=== PATIENT | male | born 1955 | race Caucasian/White ===

== ENCOUNTER 2020-09-27 09:29 | Outpatient (REF) | payer MEDICARE, OTHER, SELFPAY ==
--- NOTE | ~2020-09-27 | XR_ITS ---
EXAMINATION: XR CHEST 2 VIEWS CLINICAL INFORMATION: Shortness of breath on exertion. COMPARISON: None. TECHNIQUE: Frontal and lateral views of the chest were obtained. FINDINGS: The heart, great vessels, pulmonary vasculature and mediastinum are normal. The lungs show no focal infiltrate, effusion or pneumothorax. There is no acute osseous abnormality. There are costochondral calcifications. There is multi-level thoracolumbar spondylosis, with an appearance suggesting possible DISH (diffuse idiopathic skeletal hyperostosis). XR/XR chest 2V IMPRESSION: No active cardiopulmonary disease.
[2020-09-27 10:33] LABS: MANUAL DIFF FLAG NO
[2020-09-27 10:46] LABS: Basophils Percent Auto 0.6 % (0-2); Eosinophils Absolute Auto 0.1 X10*3/uL (0.0-0.4); Eosinophils Percent Auto 1.9 % (0-4); Hematocrit 44.6 % (42-52); Hemoglobin 15.2 g/dl (14.0-18.0); Imm Gran Abs Auto 0.06 X10*3/uL (0.00-0.03); Imm Gran Pct Auto 1.2 % (0.0-0.4); Lymphocytes Absolute Auto 1.1 X10*3/uL (1.2-4.9); Lymphocytes Percent Auto 21.8 % (20-40); Mean Corpuscular HGB Conc 34.1 g/dl (31.0-36.0); Mean Corpuscular Hemoglobin 30.6 pg (27.0-33.0); Mean Corpuscular Volume 89.7 fL (80-98); Mean Platelet Volume 10.3 fL (9.4-12.4); Monocytes Absolute Auto 0.5 X10*3/uL (0.1-1.2); Monocytes Percent Auto 8.9 % (2-11); Neutrophils Absolute Auto 3.4 X10*3/uL (2.0-8.3); Neutrophils Percent Auto 65.6 % (45-73); Platelet Count 189 X10*3/uL (160-400); Red Blood Count 4.97 X10*6/uL (4.60-5.80); Red Cell Distribution Width 12.5 % (11.0-16.0); White Blood Count 5.2 X10*3/uL (4.8-10.8)
[2020-09-27 11:10] LABS: Alanine Aminotransferase 28 U/L (0-40); Albumin Level 4.2 g/dL (3.5-5.0); Alkaline Phosphatase 98 U/L (39-117); Anion Gap 13 (12-20); Aspartate Amino Transferase 23 U/L (5-37); Bilirubin Total 0.4 mg/dL (0.0-1.0); Blood Urea Nitrogen 16 mg/dL (9-16); Calcium 9.4 mg/dL (8.4-10.2); Carbon Dioxide 23 mmol/L (22-29); Chloride 105 mmol/L (96-108); Cholesterol 179 mg/dL; Estimated Glomerular Filt Rate > 60; Glucose Fasting 103 mg/dL (60-99); HDL Cholesterol 48 mg/dL; LDL Cholesterol Calculated 98 mg/dl; Potassium 4.4 mmol/L (3.3-5.1); Sodium 137 mmol/L (135-145); Triglycerides 168 mg/dL
[2020-09-27 11:35] LABS: Thyroid Stimulating Hormone 1.76 uIU/mL (0.32-4.0)
== END 2020-09-27 09:30 | disposition home or self-care (01) ==
LOC: HO.LAB 09:29
PROVIDERS: PCP Internal Medicine; Visit Provider Internal Medicine
DX: R06.02 Shortness of breath (principal); G47.33 Obstructive sleep apnea (adult) (pediatric); E78.00 Pure hypercholesterolemia, unspecified
CPT/HCPCS: 36415; 71046; 80053; 80061; 84443; 85025

== ENCOUNTER → 2020-10-08 14:34 | Outpatient (BNVA) | payer BC, MEDICARE, SELFPAY | PROVIDERS: PCP Internal Medicine; Visit Provider Internal Medicine | DX: G47.33 Obstructive sleep apnea (adult) (pediatric) (principal); E66.9 Obesity, unspecified; R06.00 Dyspnea, unspecified; Z99.89 Dependence on other enabling machines and devices | CPT/HCPCS: 99202 ==

== ENCOUNTER 2020-10-19 08:51 | Outpatient (REF) | payer MEDICARE, OTHER, SELFPAY ==
--- NOTE | 2020-10-19 16:39 | PFT_ITS ---
INDICATION: Dyspnea. SPIROMETRY: FEV1 to FVC of 70% predicted with an FEV1 of 2.69 L, which is 81% predicted, and FVC of 2.85 L, which is 86% predicted. No significant response to bronchodilators noted. Maximum voluntary ventilation 82% predicted. LUNG VOLUMES: Total lung capacity 92% predicted with residual volume 103% predicted. Diffusion capacity, DLCO 83% predicted. COMPARISONS: None. INTERPRETATION: There is an obstructive ventilatory defect consistent with mild COPD. The patient does not have any significant response to bronchodilators and has a normal maximum voluntary ventilation. Lung volumes are within normal limits and diffusion capacity as well. Clinical correlation warranted. MD AMARILYS Chamorro/DARRYL / [phone]
== END 2020-10-19 08:52 | disposition home or self-care (01) ==
LOC: HO.RESP 08:51
PROVIDERS: PCP Internal Medicine; Visit Provider Internal Medicine
DX: R06.00 Dyspnea, unspecified (principal); E66.9 Obesity, unspecified
CPT/HCPCS: 94060; 94727; 94729

== ENCOUNTER → 2020-10-24 14:14 | Outpatient (BNVA) | payer MEDICARE, OTHER, SELFPAY | PROVIDERS: PCP Internal Medicine; Visit Provider Internal Medicine Cardiovascular Disease | DX: R06.00 Dyspnea, unspecified (principal) | CPT/HCPCS: 93005; 99202 ==

== ENCOUNTER → 2020-10-29 11:05 | Outpatient (REF) | payer MEDICARE, OTHER, SELFPAY ==
--- NOTE | 2020-10-29 11:08 | CA_ITS ---
Acquisition Time: 2020-10-29 11:30:09 Total Exercise Time: 00:09:10 Test Indications: CP, SOB Medications: SEE CHART Protocol: EHSAN Max HR: 141 BPM 90% of Pred: 155 BPM Max BP: 182/074 mmHG Max Work Load: 10.3 METS Exercise stress test with exercise 9 min 10 sec of Ehsan protocol, with mild sob, no chest discomfort, with isolated PVC, with normotensive response to exercise, without EKG changes meeting criteria for ischemia. Echo images obtained by tech at rest and immediately post peak exercise. Definity contrast used. Test reviewed with Dr Jang. Referred By: Toan Wright Overread By: FREYA LERMA
== END ==
LOC: HO.CARD 11:05
PROVIDERS: Visit Provider Internal Medicine Cardiovascular Disease
DX: R06.00 Dyspnea, unspecified (principal)
CPT/HCPCS: 93350; Q9957

== ENCOUNTER → 2020-11-21 10:34 | Outpatient (BNVA) | payer BC, MEDICARE, SELFPAY | PROVIDERS: PCP Internal Medicine; Visit Provider Internal Medicine | DX: G47.33 Obstructive sleep apnea (adult) (pediatric) (principal); E66.9 Obesity, unspecified; J44.9 Chronic obstructive pulmonary disease, unspecified; Z99.89 Dependence on other enabling machines and devices | CPT/HCPCS: 99212 ==

== ENCOUNTER → 2020-12-06 13:40 | Outpatient (BNVA) | payer MEDICARE, OTHER, SELFPAY | PROVIDERS: PCP Internal Medicine; Visit Provider Internal Medicine Cardiovascular Disease | DX: R06.00 Dyspnea, unspecified (principal) | CPT/HCPCS: 99212 ==

== ENCOUNTER → 2021-03-13 08:57 | Outpatient (BNVA) | payer MEDICARE, OTHER, SELFPAY | PROVIDERS: PCP Internal Medicine; Referring Provider Internal Medicine; Visit Provider Internal Medicine Cardiovascular Disease | DX: R06.00 Dyspnea, unspecified (principal); J44.9 Chronic obstructive pulmonary disease, unspecified; E78.5 Hyperlipidemia, unspecified; E66.9 Obesity, unspecified; G47.33 Obstructive sleep apnea (adult) (pediatric); F17.200 Nicotine dependence, unspecified, uncomplicated; Z68.35 Body mass index [BMI] 35.0-35.9, adult; Z99.89 Dependence on other enabling machines and devices; Z79.899 Other long term (current) drug therapy | CPT/HCPCS: 99212 ==

== ENCOUNTER → 2021-03-19 09:22 | Outpatient (BNVA) | payer MEDICARE, OTHER, SELFPAY | PROVIDERS: PCP Internal Medicine; Visit Provider Internal Medicine | DX: G47.33 Obstructive sleep apnea (adult) (pediatric) (principal); J44.9 Chronic obstructive pulmonary disease, unspecified; R06.00 Dyspnea, unspecified; E66.9 Obesity, unspecified; Z99.89 Dependence on other enabling machines and devices | CPT/HCPCS: 99212 ==

== ENCOUNTER → 2021-09-11 09:13 | Outpatient (BNVA) | payer MEDICARE, SELFPAY | PROVIDERS: PCP Internal Medicine; Referring Provider Internal Medicine; Visit Provider Internal Medicine Cardiovascular Disease | DX: R06.00 Dyspnea, unspecified (principal) | CPT/HCPCS: 93005; 99212 ==

== ENCOUNTER → 2021-09-16 09:18 | Outpatient (BNVA) | payer MEDICARE, SELFPAY | PROVIDERS: PCP Internal Medicine; Visit Provider Internal Medicine | DX: G47.33 Obstructive sleep apnea (adult) (pediatric) (principal); J44.9 Chronic obstructive pulmonary disease, unspecified; R06.00 Dyspnea, unspecified; E66.9 Obesity, unspecified; Z99.89 Dependence on other enabling machines and devices | CPT/HCPCS: 99212 ==

== ENCOUNTER → 2022-02-05 13:38 | Outpatient (BNVA) | payer MEDICARE, SELFPAY | PROVIDERS: PCP Internal Medicine; Referring Provider Internal Medicine; Visit Provider Nurse Practitioner Family | DX: R06.00 Dyspnea, unspecified (principal); G47.33 Obstructive sleep apnea (adult) (pediatric); E66.9 Obesity, unspecified; J44.9 Chronic obstructive pulmonary disease, unspecified; Z99.89 Dependence on other enabling machines and devices | CPT/HCPCS: 99212 ==

== ENCOUNTER → 2022-03-18 10:28 | Outpatient (BNVA) | payer MEDICARE, SELFPAY | PROVIDERS: Visit Provider Internal Medicine | DX: G47.33 Obstructive sleep apnea (adult) (pediatric) (principal); G47.00 Insomnia, unspecified; J44.9 Chronic obstructive pulmonary disease, unspecified; Z99.89 Dependence on other enabling machines and devices | CPT/HCPCS: 99212 ==

== ENCOUNTER → 2022-09-22 11:19 | Outpatient (BNVA) | payer MEDICARE, SELFPAY | PROVIDERS: Visit Provider Internal Medicine | DX: G47.33 Obstructive sleep apnea (adult) (pediatric) (principal); J44.9 Chronic obstructive pulmonary disease, unspecified; G47.00 Insomnia, unspecified; Z99.89 Dependence on other enabling machines and devices | CPT/HCPCS: 99212 ==

== ENCOUNTER 2023-02-18 15:04 | Outpatient (AMB) | payer MEDICARE, SELFPAY ==
--- NOTE | 2023-02-18 15:49 | A.OFFVIS_ITS ---
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 He said during the wintertime he had exertional shortness of breath as well as some chest discomfort. He was smoking cigars at that time. He was referred to pulmonology and was seen by Dr. Corbett. He is saying that he continues to have shortness of breath. He also gets shortness of breath if he bends down. He has gained weight and he has abdominal obesity. He has no chest discomfort. Physically he is active at work but does not exercise regularly. He was referred for stress echocardiogram. This was essentially normal. He was advised to lose some weight and to see if his breathing improves. He returns for follow-up today. He has lost 12 lb since his previous visit. He is saying by his home scale he has lost 20 lb. He is saying that he is feeling much better and able to do more and his shortness of breath is improving. 02/18/2023: He returns for follow-up. Noe greco is saying that he exercise and lost weight and felt better from dyspnea point of view. He is saying he has stopped losing weight despite trying and unable to lose further weight. His dietary habits are that he does not eat a breakfast, he eats saw small lunch and then he has a big dinner. I explained to him that he needs to reverse his eating pattern and eat smaller meals at dinnertime. Overall his dyspnea has improved significantly with weight loss and he is denying any other concerns right now. [facility] Medical History COPD (chronic obstructive pulmonary disease) Dyspnea on exertion Insomnia Obesity (BMI 30-39.9) ANTHONY on CPAP Surgical History H/O knee surgery Family History Brother A-fib Brother A-fib Social History Alcohol intake: current Alcohol intake frequency: a few times a week Patient Tobacco Use Status: Current someday Tobacco user Tobacco use type: Cigar Years Smoked: 30+/- (Cigarettes) Review of Systems Const Denies chills, Denies fatigue, Denies fever(s), Denies frequent falls, Denies weakness, Denies weight gain and Denies weight loss ENT Denies dizziness Card Denies chest pain, Denies leg edema, Denies lightheadedness, Denies palpitations, Denies dyspnea, Denies dyspnea on exertion, Denies orthopnea and Denies other (loss of consciousness) Resp Denies cough, Denies dyspnea and Denies dyspnea on exertion GI Denies hematochezia and Denies change in stool character Musc Denies abnormal gait, Denies muscle weakness, Denies numbness, Denies radiating pain into limb and Denies tingling Neuro Denies abnormal gait, Denies dizziness, Denies frequent falls, Denies numbness, Denies tingling and Denies weakness Endo Denies fatigue and Denies palpitations Physical Exam Vital Signs: Last Vital Signs Pulse 72 02/18/23 15:50 BP 126/74 02/18/23 15:50 BMI result Body Mass Index 32.6 GENERAL APPEARANCE: in no acute distress, pleasant. NECK: no carotid bruit, no jugular venous distention. SKIN: no suspicious lesions, warm and dry. HEART: no murmurs, regular rate and rhythm. LUNGS: clear to auscultation bilaterally. ABDOMEN: soft, nontender. EXTREMITIES: no edema. PERIPHERAL PULSES: equal. NEUROLOGIC: No gross deficits, AAO X 3 Office Procedures EKG Details: Sinus rhythm 72 beats per rightward axis poor R-wave progression cannot rule out anteroseptal infarct, QTC 420 milliseconds. [id number], Complete Assessment & Plan Assessment & Plan (1) Obesity (BMI 30-39.9): Code(s): E66.9 - Obesity, unspecified (2) Dyspnea on exertion: Comment: DYSPNEA ON EXERTION IS SECONDARY TO OBESITY AND MILD COPD. Code(s): R06.00 - Dyspnea, unspecified Plan Pleasant 67 gentleman is here for follow-up. He was seen for dyspnea on exertion and abnormal ECG showing anteroseptal infarct. He underwent stress testing which was normal. He has been trying to lose weight and has improved his dyspnea significantly. I think most of his dyspnea is due to abdominal obesity and being overweight. He has been following with pulmonology also and has mild COPD. Overall clinically stable. He can see us back in 6 months. Thank you for allowing me to participate in the care of your patient. Please feel free to contact me if you have any questions. Coding Level of Care Code Est Pt Level 3 (71953) Diagnoses Obesity (BMI 30-39.9) E66.9 Dyspnea on exertion R06.00 CPT Codes EKG - CPT: 76566-[id number], Complete ([id number])
[2023-02-18 15:50] VITALS: BP 126/74; PULSE 72; BMI 32.6
== END 2023-02-18 16:15 ==
PROVIDERS: Visit Provider Internal Medicine Cardiovascular Disease
DX: E66.9 Obesity, unspecified (principal); R06.00 Dyspnea, unspecified
CPT/HCPCS: 93010; 99213

== ENCOUNTER → 2023-02-18 15:04 | Outpatient (BNVA) | payer MEDICARE, SELFPAY | PROVIDERS: Visit Provider Internal Medicine Cardiovascular Disease | DX: R06.00 Dyspnea, unspecified (principal); E66.9 Obesity, unspecified; Z68.32 Body mass index [BMI] 32.0-32.9, adult | CPT/HCPCS: 93005; 99212 ==

== ENCOUNTER 2023-03-31 09:04 | Outpatient (AMB) | payer MEDICARE, SELFPAY ==
[2023-03-31 09:11] VITALS: BP 110/60; PULSE 60; O2SAT 95; BMI 33.1
--- NOTE | 2023-03-31 09:11 | A.OFFVIS_ITS ---
Intake Vital Signs 03/31/23 09:11 Height 5 ft 9 in Weight 224 lb BMI 33.1 BP 110/60 Blood Pressure Location Lt brachial Position Sitting Pulse 60 Pulse Source Pulse Oximeter Pulse Oximetry (%) 95 Oxygen Delivery Method Room Air Intake Visit Reasons: Obstructive sleep apnea Intake Note: pt is here for follow up and states he is doing well with cpap, dealing with head cold and groin pull. Customer Account Coordinator Required: No Allergies No Known Allergies [No Known Allergies*] Allergy (Verified 03/31/23 09:25) Medication List - Last Reconciled 03/31/23 by Kris Corbett MD atorvastatin 40 mg PO DAILY Do you need a note to return to daycare/school/sports/work: No HPI Obstructive sleep apnea HPI Details 67 YEARS OLD GENTLEMAN, MODERATELY OBESE , WITH DIAGNOSIS OF OBSTRUCTIVE SLEEP APNEA, COMES AFTER 6 MONTHS FOR ROUTINE FOLLOW-UP. HAS BEEN USING HIS CPAP VERY REGULARLY EVERY NIGHT. AND SLEEPS WELL CURRENTLY HAVING MILD NASAL CONGESTION DUE TO COMMON COLD , WHICH IS GETTING BETTER. HE HAS NO ONGOING COUGH OR WHEEZING. HE HAS NOT USED ANY BRONCHODILATOR INHALERS AT ALL. [facility] Medical History Insomnia COPD (chronic obstructive pulmonary disease) Dyspnea on exertion ANTHONY on CPAP Obesity (BMI 30-39.9) Surgical History H/O knee surgery Family History Brother A-fib Brother A-fib Alcohol intake: current Alcohol intake frequency: a few times a week Patient Tobacco Use Status: Former Tobacco user Tobacco use type: Cigar Years Smoked: 30+/- (Cigarettes) Review of Systems Const All systems reviewed & are unremarkable except as noted in HPI and below Eyes Reports no additional complaints ENT Reports no additional complaints Card Denies chest pain, Denies irregular heart rhythm, Denies leg edema and Reports dyspnea on exertion (mild) Resp Denies cough, Reports dyspnea on exertion (mild) and Denies wheezing GI Reports no additional complaints Reports no additional complaints Musc Reports no additional complaints Skin/Breast Reports system reviewed and no additional complaints, except as documented Neuro Reports no additional complaints Psych Reports no additional complaints Aller/Immun Denies wheezing Physical Exam Const General: healthy appearing (Except for being overweight), comfortable, no acute distress, alert and awake Orientation/consciousness: patient oriented x3 HEENT Head: Yes normal to inspection General nose exam: No nasal polyps present and No nasal discharge present Face and sinus: Yes sinuses nontender Mouth: oropharynx normal Throat: Yes posterior oropharynx normal (Space compromised, Mallampati class 3) Eyes General: appearance normal, both eyes and all related structures Neck Neck: Yes normal visual inspection, Yes no lymphadenopathy, Yes trachea midline and Yes no JVD Thyroid: Thyroid normal Chest Chest palpation & inspection: normal inspection of the chest, normal palpation of entire chest wall and no tenderness Resp Effort & Inspection: normal respiratory effort Auscultation: clear to auscultation bilaterally, no crackles and no wheezes Cardio Palpation: normal PMI Rate: regular rate Rhythm: regular rhythm Heart sounds: no gallops and no murmurs Peripheral pulses: Peripheral pulses 2+ throughout GI Palpation (GI): Soft to palpation, nontender, No hepatosplenomegaly present, no masses and Other GI palpation findings present (Abdomen is obese and protuberant) Auscultation: normal bowel sounds Back/Spine/Pelvis Thoracic/Lumbar Spine: thoracic and lumbar spine normal to inspection Skin General skin exam: no rashes or lesions noted Neuro General: patient oriented x3 and no focal motor deficits Cranial nerves: Yes CN's II-XII intact bilaterally Extrem General: Yes normal to inspection, Yes no clubbing, cyanosis or edema and Yes no calf tenderness Psych Appearance: grossly normal and well kempt Speech and movement: Normal speech and movement present Results Reviewed Results Reviewed: COMPLIANCE REPORT FOR THE LAST 30 NIGHTS REVIEWED, HE HAS USED 30/30 NIGHTS, 100% AVERAGE USE PER NIGHT IS 6 HOURS 37 MINUTES, PRESSURE USE 16-18 CM, NO SIGNIFICANT AIR LEAK,. RESIDUAL AHI IS 6.3 WHICH IS STILL LITTLE HIGH Assessment & Plan Assessment & Plan (1) Obesity (BMI 30-39.9): Comment: HE IS A GAIN MADE AWARE OF HIS WEIGHT GAIN AND ADVISED TO WATCH HIS DIET AND TRY TO LOSE 5-10 LB OF WEIGHT Code(s): E66.9 - Obesity, unspecified (2) ANTHONY on CPAP: Comment: OBSTRUCTIVE SLEEP APNEA, PATIENT ON CPAP, AND IS VERY COMPLIANT, SLEEPS AT LEAST 6 HOURS WITH THE CPAP ON EVERY NIGHT. Code(s): G47.33 - Obstructive sleep apnea (adult) (pediatric); Z99.89 - Dependence on other enabling machines and devices (3) COPD (chronic obstructive pulmonary disease): Comment: PER PULMONARY FUNCTION TEST HIS OBSTRUCTIVE AIRWAY DISORDER WAS MILD, HE DOES NOT NEED TO USE ANY BRONCHODILATOR THERAPY . DYSPNEA ON EXERTION IS DUE TO COMBINATION OF MILD COPD AND OBESITY, AND NOT BOTHERSOME AT THIS TIME. USE RESCUE INHALOR ( ALBUTEROL ) ONLY PRN . Code(s): J44.9 - Chronic obstructive pulmonary disease, unspecified Coding Level of Care Code Est Pt Level 3 (30642) Diagnoses Obesity (BMI 30-39.9) E66.9 ANTHONY on CPAP G47.33; Z99.89 COPD (chronic obstructive pulmonary disease) J44.9
== END 2023-03-31 09:29 | disposition home or self-care (01) ==
PROVIDERS: PCP Internal Medicine; Visit Provider Internal Medicine
DX: E66.9 Obesity, unspecified (principal); G47.33 Obstructive sleep apnea (adult) (pediatric); Z99.89 Dependence on other enabling machines and devices; J44.9 Chronic obstructive pulmonary disease, unspecified
CPT/HCPCS: 99213

== ENCOUNTER → 2023-03-31 09:04 | Outpatient (BNVA) | payer MEDICARE, SELFPAY | PROVIDERS: PCP Internal Medicine; Visit Provider Internal Medicine | DX: G47.33 Obstructive sleep apnea (adult) (pediatric) (principal); J44.9 Chronic obstructive pulmonary disease, unspecified; E66.9 Obesity, unspecified; Z68.33 Body mass index [BMI] 33.0-33.9, adult; Z99.89 Dependence on other enabling machines and devices | CPT/HCPCS: 99212 ==

== ENCOUNTER 2023-04-21 08:02 | Outpatient (AMB) | payer MEDICARE, SELFPAY ==
--- NOTE | 2023-04-21 08:12 | AM.OFFWIN_ITS ---
Intake Vital Signs 04/21/23 08:13 Height 5 ft 9 in Weight 234 lb BMI 34.6 BP 134/64 Blood Pressure Location Lt brachial Position Sitting Pulse 64 Pulse Source Pulse Oximeter Temp 98.4 F Temp Source Oral Pulse Oximetry (%) 94 Oxygen Delivery Method Room Air Intake Visit Reasons: EP groin pulled Intake Note: Pt is here today c/o Lt side of groin ?pulled muscle [id number] Patient Tobacco Use Status: Current everyday Tobacco user Allergies No Known Allergies [No Known Allergies*] Allergy (Verified 04/21/23 08:22) HPI HPI Comments History of Present Illness Details This is a 67-year-old male with past medical history hyperlipidemia, ANTHONY compliant with his CPAP and COPD not currently oxygen dependent presenting for evaluation of left inguinal pain that has been present for the past 1 month. Patient denies any injury or trauma preceding the onset of his symptoms and states that the symptoms are intermittent and improving. Patient has been taking Advil intermittently up to twice daily over the past 1 week with relief of his discomfort. 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 Patient states when he sleeps the pain will radiate into his left testicle however has no left testicular pain during the day. Patient denies any back pain or neuropathy in his left lower extremity. [facility] Medical History Insomnia COPD (chronic obstructive pulmonary disease) Dyspnea on exertion ANTHONY on CPAP Obesity (BMI 30-39.9) Surgical History H/O knee surgery Family History Brother A-fib Brother A-fib Social History Alcohol intake: current Alcohol intake frequency: a few times a week Patient Tobacco Use Status: Current everyday Tobacco user Tobacco use type: Cigar Years Smoked: 30+/- (Cigarettes) Review of Systems Const All systems reviewed & are unremarkable except as noted in HPI and below Reports no additional complaints Musc Reports no additional complaints and Reports other (left inguinal pain) Skin/Breast Reports as per HPI Neuro Reports no additional complaints Physical Exam Vital Signs: BMI result Body Mass Index 34.6 Const General: cooperative, healthy appearing, no acute distress and well developed Nutritional Appearance: well nourished Orientation/consciousness: patient oriented x3 Limitations: no limitations GI Palpation (GI): Soft to palpation and nontender Testes: Testes normal and no testicular tenderness (bilaterally) Back/Spine/Pelvis Other: there is focal left inguinal tenderness, no suprapubic tenderness, inguinal tenderness is not exacerbated with left hip rotation against resistance Thoracic/Lumbar Spine: thoraco-lumbar ROM normal, No paraspinal muscle tenderness, No thoracic spinal tenderness, No lumbar spinal tenderness and No straight leg raise positive Pelvis: no sciatic notch tenderness Skin General skin exam: no rashes or lesions noted Neuro General: patient oriented x3 Extrem General: Yes normal to inspection Psych Appearance: grossly normal Mental Status: mental status grossly normal Insight: Good insight present (Psych) Judgement: Good judgement present (Psych) Assessment & Plan Assessment & Plan (1) Strain of left inguinal region: Code(s): S76.212A - Strain of adductor muscle, fascia and tendon of left thigh, initial encounter Plan: Naprosyn BID x 7-10 days; patient has follow-up with new PCP on May 11 and will inquire about physical therapy if his symptoms persist at that time. Medications: New naproxen (Naprosyn) 500 mg PO BID 20 tabs 0RF Coding Level of Care Code New Pt Level 3 (02791) Diagnoses Strain of left inguinal region S76.212A Time Spent (min) 20
[2023-04-21 08:13] VITALS: BP 134/64; PULSE 64; TEMP 36.9; O2SAT 94; BMI 34.6
== END 2023-04-21 08:54 | disposition home or self-care (01) ==
PROVIDERS: PCP Internal Medicine; Visit Provider Physician Assistant
DX: S76.212A Strain of adductor muscle, fascia and tendon of left thigh, initial encounter (principal)
CPT/HCPCS: 99203

== ENCOUNTER 2023-05-11 07:56 | Outpatient (AMB) | payer MEDICARE, SELFPAY ==
--- NOTE | 2023-05-11 08:04 | A.OFFPC_ITS ---
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 Woodall Intake Note: pt is here to est care from Dr Woodall pt's Allergies No Known Allergies [No Known Allergies*] Allergy (Verified 05/11/23 08:23) Medication List - Last Reconciled 05/11/23 by DIVYA Nolasco atorvastatin 40 mg PO DAILY Tobacco use date assessed: 05/11/23 Fall risk assessment: No Falls in past year Last assessed Fall Risk: 05/11/23 Dental Screening Dental Screen Date: 05/11/23 Did you have a dental visit in the last 12 months?: Yes Did you have a dental problem in the last 6 months where you did not have access to dental care?: No Was dental information given to patient?: Patient has dentist HPI HPI Comments History of Present Illness Details Patient is a 67-year-old male here to establish care. He has declined this year's influenza vaccine, the Prevnar 20 vaccine, shingles vaccine, and COVID booster. He has a history of getting 3 administrations of the COVID-19 vaccine. Need to obtain records with last colonoscopy. He has a past medical history significant for hyperlipidemia, insomnia, obstructive sleep apnea, and lower back pain. He was seen recently in our walk-in clinic with a chief complaint of left groin pain. He was given naproxen 500 mg p.o. b.i.d. which he states gives some relief, but that he still has lingering pain especially when he tries to sleep at night. 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 1. Little interest or pleasure in doing things: not at all 2. Feeling down, depressed, or hopeless: not at all 3. Trouble falling or staying asleep, or sleeping too much: nearly every day 4. Feeling tired or having little energy: nearly every day 5. Poor appetite or overeating: not at all 6. Feeling bad about yourself - or that you are a failure or have let yourself or your family down: not at all 7. Trouble concentrating on things, such as reading the newspaper or watching television: not at all 8. Moving or speaking so slowly that other people could have noticed. Or the opposite - being so fidgety or restless that you have been moving around a lot more than usual: not at all 9. Thoughts that you would be better off or of hurting yourself in some way: not at all Total score: 6 Source: Developed by Drs. Marc Nathan, Tyra Ruth, Bhanu Gayle and colleagues, with an educational alex from [employer]. Thrive Questionnaire Date Thrive assessed: 05/11/23 I am a: Patient What is your living situation today?: I have a steady place to live Within the past 12 months, did the food you bought not last and you didn't have the money to get more?: Never true Within the past 12 months, did you worry whether your food would run out before you got money to buy more?: Never true Do you have trouble paying for medicines?: No Do you have trouble getting transportation to medical appointments?: No Do you have trouble paying your heating and electricity bill?: No Do you have trouble taking care of your child, family member or friend?: No Do you have trouble with day-to-day activities such as bathing, preparing meals, shopping, managing finances, etc.?: No Are you currently unemployed and looking for a job?: No Are you interested in more education?: No AUDIT C Alcohol Use Questionnaire (AUDIT-C) 1. How often do you have a drink containing alcohol?: 2-3 times a week 2. How many drinks containing alcohol do you have on a typical day when you are drinking?: 1 or 2 3. How often do you have six or more drinks on one occasion?: Never Total Score: 3 ALLIE-7 AMB Questionnaire ALLIE-7 Date ALLIE - 7 assessed: 05/11/23 Feeling nervous, anxious, or on edge: 2 = More than half the days Not being able to stop or control worryin = More than half the days Worrying too much about different things: 2 = More than half the days Trouble relaxin = More than half the days Being so restless that it is hard to sit still: 1 = Several days Becoming easily annoyed or irritable: 1 = Several days Feeling afraid as if something awful might happen: 0 = Not at all Total ALLIE-7 score (0-4 normal; 5-9 mild; 10-14 moderate; 15-21 severe): 10 Source: Developed by Drs. Marc Nathan, Tyra Ruth, Bhanu Gayle and colleagues, with an educational alex from [employer]. Review of Systems Const Details: Constitutional : No Weight loss, No Fever, No Chills, No Fatigue, No Malaise Cardiovascular : No Chest Pain, No SOB, No Dyspnea on Exertion, No Orthopnea, No Edema, No Palpitations Respiratory : No Cough, No Sputum, No Wheezing Gastrointestinal : No Nausea, No Vomiting, No Diarrhea, No Constipation, No abdominal Pain, No Hematochezia, No Melena Genitourinary : No Dysuria, No Urinary Frequency, No Hematuria, Musculoskeletal : No joint pain, No Myalgias, No Joint Swelling Skin : No Skin Lesions, No rash Neuro : No Weakness, No Numbness, No Dizziness, No Headache Psych : No Anxiety/Panic, No Depression Heme/Lymph: No Bruising, No Bleeding,No Lymphadenopathy Endocrine : No Polyuria, No Polydipsia All other systems reviewed and are negative Physical exam (Primary Care) Vital Signs: Last Vital Signs Pulse 70 05/11/23 08:05 BP 138/80 05/11/23 08:05 Pulse Ox 95 05/11/23 08:05 Oxygen Delivery Method Room Air 05/11/23 08:05 Care Plan Goal for BP management: Patient will take blood pressure measurements at home. BMI result Body Mass Index 34.0 Tobacco/Smoking Status: Tobacco use Status Tobacco use date assessed 05/11/23 05/11/23 08:15 Patient Tobacco Use Status Former Tobacco user 05/11/23 08:15 Tobacco use type Cigar 05/11/23 08:05 e-Cigarette/Vaping Use Never Used 05/11/23 08:15 Const Other: Appearance: Alert.? Oriented X3.? No acute distress.? Eyes: Pupils equal, round and reactive to light.? Neck: Normal inspection.? Neck supple.? CVS: Normal heart rate and rhythm.? Pulses normal.? Respiratory: No respiratory distress.? Breath sounds normal.? Abdomen: Soft and nontender.? MSK: Patient has some tenderness to left groin area. Full ROM. No cracking or crepitus. No deformitys. Skin: Skin warm and dry.? Normal skin color.? Normal skin turgor.? Back: No midline tenderness, no C-spine tenderness, full range of motion. Neuro: Oriented X 3.? No motor deficit.? No sensory deficit. CN 2-12 intact Assessment and Plan Assessment & Plan (1) Strain of left inguinal region: Comment: Patient would not like oral medication at this time. Will order ultrasound to rule out hernia. Code(s): S76.212A - Strain of adductor muscle, fascia and tendon of left thigh, initial encounter (2) Hyperlipidemia: Comment: Patient will have labs. Will start atorvastatin if indicated. Code(s): E78.5 - Hyperlipidemia, unspecified Qualifiers: Hyperlipidemia type: unspecified Qualified Code(s): E78.5 - Hyperlipidemia, unspecified (3) Tinnitus: Comment: Patient states he has ringing in his ears. Will refer to speech and hearing. Code(s): H93.19 - Tinnitus, unspecified ear Qualifiers: Laterality: bilateral Qualified Code(s): H93.13 - Tinnitus, bilateral Plan: Take your medications as prescribed. If you were prescribed antibiotics today, it is important that you take your medication to their entirety, do not skip any doses, do not finish them early. Follow-up with your primary care provider this week. Return to the emergency department with new or worsening symptoms. Such as fevers, chills, chest pain, shortness of breath, nausea, vomiting, dizziness, headache, vision changes, lethargy In case of emergency call 911 Plan Patient will follow-up with physical in 4 months. Orders: Orders Complete Blood Count Auto Diff Today Z13.0 - Encounter for screening for diseases of the blood and blood-forming organs and certain disorders involving the immune mechanism Lipid Panel Today E78.5 - Hyperlipidemia, unspecified PSA,Total (Free>4and<10) Today Z12.5 - Encounter for screening for malignant neoplasm of prostate Vitamin D 25-OH (D2 and D3) Today Z13.21 - Encounter for screening for nutritional disorder UA CC w/rflx Micro + Cult Today E86.0 - Dehydration Comprehensive Met. Panel Today Z91.89 - Other specified personal risk factors, not elsewhere classified TSH reflex Free T4 Today E03.9 - Hypothyroidism, unspecified US pelvic complete Today S76.212A - Strain of adductor muscle, fascia and tendon of left thigh, initial encounter Referrals Speech and Hearing Referral H93.19 - Tinnitus, unspecified ear Medications: New lidocaine 4% (Salonpas (lidocaine)) 1 patch topical DAILY PRN 30 ea 0RF pain Review Patient declined Pneumococcal Vaccine: 05/11/23 Flu Vaccine not done: patient reason (Declined) Coding Level of Care Code Est Pt Level 3 (07541) Diagnoses Strain of left inguinal region S76.212A Hyperlipidemia, unspecified hyperlipidemia type E78.5 Hyperlipidemia type: unspecified Tinnitus of both ears H93.13 Laterality: bilateral Time Spent (min) 40
[2023-05-11 08:05] VITALS: BP 138/80; PULSE 70; O2SAT 95; BMI 34.0
== END 2023-05-11 08:53 | disposition home or self-care (01) ==
PROVIDERS: PCP Internal Medicine; Visit Provider Nurse Practitioner Primary Care
DX: S76.212A Strain of adductor muscle, fascia and tendon of left thigh, initial encounter (principal); E78.5 Hyperlipidemia, unspecified; H93.13 Tinnitus, bilateral
CPT/HCPCS: 99215

== ENCOUNTER 2023-05-28 07:52 | Outpatient (REF) | payer MEDICARE, SELFPAY ==
[2023-05-28 11:38] LABS: MANUAL DIFF FLAG NO
[2023-05-28 11:55] LABS: Appearance Urine Clear; Color Urine Yellow; Glucose Urine UA Negative (Negative); Leukocyte Esterase Urine Negative (Negative); Nitrite Urine Negative (Negative); Specific Gravity - Urine 1.025 (1.005-1.025); UMIC TRIGGER UACC YES; Urine Blood Trace (Negative); Urine Ketones Negative (Negative); Urine Protein Negative (Neg-Trace)
[2023-05-28 11:59] LABS: Bacteria Urine None Seen (None Seen); Hyaline Casts Urine 0-2 /LPF (0-2); RBC Urine 0-2 /HPF (0-2); Squamous Epithelial Cell Urine 0-2 /HPF (0-2); WBC Urine 0-5 /HPF (0-5)
[2023-05-28 12:11] LABS: Basophils Percent Auto 0.5 % (0-2); Eosinophils Absolute Auto 0.2 X10*3/uL (0.0-0.4); Eosinophils Percent Auto 3.1 % (0-4); Hematocrit 44.2 % (42.0-52.0); Hemoglobin 14.6 g/dl (14.0-18.0); Imm Gran Abs Auto 0.02 X10*3/uL (0.00-0.03); Imm Gran Pct Auto 0.3 % (0.0-0.4); Lymphocytes Absolute Auto 1.3 X10*3/uL (1.2-4.9); Lymphocytes Percent Auto 22.4 % (20-40); Mean Corpuscular Volume 90.8 fL (80.0-98.0); Mean Platelet Volume 9.9 fL (9.4-12.4); Monocytes Absolute Auto 0.6 X10*3/uL (0.1-1.2); Monocytes Percent Auto 10.8 % (2-11); Neutrophils Absolute Auto 3.7 x10*3/uL (2.0-8.3); Neutrophils Percent Auto 62.9 % (45-73); Platelet Count 272 X10*3/uL (160-400); Red Blood Count 4.87 X10*6/uL (4.60-5.80); Red Cell Distribution Width 12.5 % (11.0-16.0); White Blood Count 5.8 X10*3/uL (4.8-10.8)
[2023-05-28 12:34] LABS: Alanine Aminotransferase 16 U/L (0-40); Alkaline Phosphatase 89 U/L (39-117); Anion Gap 14 (12-20); Aspartate Amino Transferase 15 U/L (5-37); Bilirubin Total 0.5 mg/dL (0.0-1.0); Blood Urea Nitrogen 20 mg/dL (9-16); Calcium 9.6 mg/dL (8.4-10.2); Carbon Dioxide 25 mmol/L (22-29); Chloride 104 mmol/L (96-108); Cholesterol 238 mg/dL (<200); Estimated Glomerular Filt Rate > 60; Glucose Random 97 mg/dL (60-115); HDL Cholesterol 55 mg/dL (>40); LDL Cholesterol Calculated 153 mg/dL (<100); Potassium 4.6 mmol/L (3.3-5.1); Sodium 138 mmol/L (135-145); Total Protein 7.3 g/dL (6.5-8.0); Triglycerides 152 mg/dL (<150)
[2023-05-28 12:44] LABS: PSA,Total (Free>4and<10) 0.83 ng/mL (0.00-4.00)
[2023-06-01 14:18] LABS: Vitamin D 25-OH, D2 <4 ng/mL; Vitamin D 25-OH, D3 12 ng/mL; Vitamin D 25-OH, Total 12 ng/mL (30-100)
== END 2023-05-28 07:53 | disposition home or self-care (01) ==
LOC: HO.HMGCLDS 07:52
PROVIDERS: PCP Nurse Practitioner Primary Care; Visit Provider Nurse Practitioner Primary Care
DX: Z12.5 Encounter for screening for malignant neoplasm of prostate (principal); Z13.0 Encounter for screening for diseases of the blood and blood-forming organs and certain disorders involving the immune mechanism; Z13.21 Encounter for screening for nutritional disorder; E03.9 Hypothyroidism, unspecified; E78.5 Hyperlipidemia, unspecified; Z91.89 Other specified personal risk factors, not elsewhere classified
CPT/HCPCS: 36415; 80053; 80061; 81001; 82306; 84153; 84443; 85025

== ENCOUNTER 2023-06-04 15:21 | Outpatient (REF) | payer MEDICARE, SELFPAY ==
--- NOTE | ~2023-06-04 | US_ITS ---
EXAMINATION: US PELVIS, LIMITED/FOLLOW UP CLINICAL INFORMATION: Strain of left inguinal region. Evaluate for hernia. COMPARISON: None available. TECHNIQUE: Targeted sonography of the left inguinal region. FINDINGS: Targeted sonographic interrogation of the left inguinal region was performed at the site of pain. There is a linear shadowing structure in the left inguinal region measuring 2.7 x 1.0 x 0.1 cm approximately 1.0 cm deep to the skin surface. No surrounding fluid collection. No internal color Doppler flow. There is no similar finding on limited images of the contralateral side. US/US pelvic limited IMPRESSION: Linear shadowing structure in the left inguinal region measuring 2.7 x 1.0 x 0.1 cm approximately 1.0 cm deep to the skin surface. Further treatment and management decisions should be based on the clinical assessment. If clinically indicated further cross-sectional imaging could be performed.
== END 2023-06-04 15:22 | disposition home or self-care (01) ==
LOC: HO.HMGCX 15:21
PROVIDERS: PCP Nurse Practitioner Primary Care; Visit Provider Nurse Practitioner Primary Care
DX: S76.212A Strain of adductor muscle, fascia and tendon of left thigh, initial encounter (principal)
CPT/HCPCS: 76857

== ENCOUNTER 2023-06-10 14:14 | Outpatient (AMB) | payer MEDICARE, SELFPAY ==
--- NOTE | 2023-06-10 14:12 | A.OFFPC_ITS ---
Intake Visit Reasons: discuss [id number] Intake Note: pt is here to discuss labs Screen Operator Required: No Allergies No Known Allergies [No Known Allergies*] Allergy (Verified 06/10/23 14:12) Tobacco use date assessed: 05/11/23 Fall risk assessment: No Falls in past year Last assessed Fall Risk: 06/10/23 Dental Screening Dental Screen Date: 06/10/23 Did you have a dental visit in the last 12 months?: Yes Did you have a dental problem in the last 6 months where you did not have access to dental care?: No Was dental information given to patient?: Patient has dentist HPI HPI Comments 2 History of Present Illness Details Patient is a 67-year-old male in for a telehealth visit. Today we reviewed his lab results, including vitamin D3 and cholesterol levels. He was out of his atorvastatin for 2 months and only recently started again, 4 weeks ago. Patient will continue to take his atorvastatin as prescribed. will have lipid redrawn in 2 months, just prior to his annual physical exam. Patient will also start taking vitamin D3, 2000 units daily for the next 3 months. Will also redrawn vitamin D3 then We also discussed the patient recent imaging results from ultrasound. Readings demonstrated that further imaging would be required, will order CT scan with contrast of the abdomen. Patient states he understands the treatment plan. 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 Marc Nathan, Tyra Ruth, Bhanu Gayle and colleagues, with an educational alex from [employer]. Review of Systems Const All systems reviewed & are unremarkable except as noted in HPI and below Card Denies chest pain and Denies dyspnea Resp Denies dyspnea Musc Details: Admits Intermittent left lower quadrant pain. Describes this as a tugging . Physical exam (Primary Care) Tobacco/Smoking Status: Tobacco use Status Tobacco use date assessed 05/11/23 06/10/23 14:14 Patient Tobacco Use Status Former Tobacco user 06/10/23 14:14 Tobacco use type Cigar 06/10/23 14:14 e-Cigarette/Vaping Use Never Used 06/10/23 14:14 Thrive Assessment: Date of Thrive Assessment Date Thrive assessed 05/11/23 06/10/23 14:14 Telehealth Telehealth Location of provider rendering services: practice address Location of patient: address on file Patient Identification confirmed using: Name, : Yes Telehealth method: voice only Patient verbally consented to treatment: Yes Patient verbally consented to billing insurance company: Yes Patient informed of any privacy concerns related to visit: Yes Results Reviewed Results Reviewed: Sodium 138 135-145 mmol/L Potassium 4.6 3.3-5.1 mmol/L CL 104 96-108 mmol/L CO2 25 22-29 mmol/L Gap 14 12-20 BUN 20 H 9-16 mg/dL Creat 0.81 0.5-1.4 mg/dL EGFR > 60 NOTE: For -[place] individuals, multiply the result by 1.210. Chronic Kidney Disease: Estimated GFR < 60 mL/min/1. 73m2 Severe Kidney Disease: Estimated GFR < 15 mL/min/1.73m2 Glucose, Random 97 60-115 mg/dL CA 9.6 8.4-10.2 mg/dL Total Bili 0.5 0.0-1.0 mg/dL AST (GOT) 15 5-37 U/L ALT (GPT) 16 0-40 U/L Protein, Total 7.3 6.5-8.0 g/dL Alb 4.0 3.5-5.0 g/dL Triglyceride 152 H <150 mg/dL Desirable Triglyceride: less than 150 mg/dL Borderline High Triglyceride 150-199 mg/dL High Triglyceride: 200-499 mg/dL Very High Triglyceride: greater than or equal to 5OO mg/dL Cholesterol 238 H <200 mg/dL Desirable Cholesterol: less than 200 mg/dL Borderline High Cholesterol: 200-239 mg/dL High Cholesterol: greater than 239 mg/dL LDL Calculated 153 H <100 mg/dL Desirable LDL: less than 100 mg/dL Near Optimal/Above Optimal LDL: 110-129 mg/dL Borderline High LDL: 130-159 mg/dL High LDL: 160-189 mg/dL Very High LDL: greater than or equal to 190 mg/dL HDL 55 >40 mg/dL Desirable HDL: greater than 40 mg/dL Note: This HDL assay may give artificially low results in patients with liver disease. Alk Phos 89 39-117 U/L TSH 1.20 0.32-4.0 uIU/mL Assessment and Plan Assessment & Plan (1) Strain of left inguinal region: Comment: Imaging from US indicated that a CT scan is needed. CT with contrast of ABD ordered. Will follow up with results. Will refer if necessary. Code(s): S76.212A - Strain of adductor muscle, fascia and tendon of left thigh, initial encounter Plan: Will get back to patient with results. (2) Hyperlipidemia: Comment: Patient will continue to take his atorvastatin. Follow-up for lab draw in 2 months. Code(s): E78.5 - Hyperlipidemia, unspecified Qualifiers: Hyperlipidemia type: unspecified Qualified Code(s): E78.5 - Hyperlipid emia, unspecified Plan: Take your medications as prescribed. If you were prescribed antibiotics today, it is important that you take your medication to their entirety, do not skip any doses, do not finish them early. Follow-up with your primary care provider this week. Return to the emergency department with new or worsening symptoms. Such as fevers, chills, chest pain, shortness of breath, nausea, vomiting, dizziness, headache, vision changes, lethargy In case of emergency call 911 Plan Patient has physical exam and 2 months. Orders: Orders CT abdomen w IV con Today S76.212A - Strain of adductor muscle, fascia and tendon of left thigh, initial encounter Lipid Panel 08/03/23 E78.5 - Hyperlipidemia, unspecified Coding Level of Care Code Tele Est Pt Level 3 (28561) Diagnoses Strain of left inguinal region S76.212A Hyperlipidemia, unspecified hyperlipidemia type E78.5 Hyperlipidemia type: unspecified Time Spent (min) 25
== END 2023-06-10 16:15 | disposition home or self-care (01) ==
LOC: HO.HMGC 14:14
PROVIDERS: PCP Nurse Practitioner Primary Care; Visit Provider Nurse Practitioner Primary Care
DX: S76.212A Strain of adductor muscle, fascia and tendon of left thigh, initial encounter (principal); E78.5 Hyperlipidemia, unspecified
CPT/HCPCS: G2252

== ENCOUNTER 2023-06-19 13:32 | Outpatient (AMB) | payer MEDICARE, SELFPAY ==
[2023-06-19 13:39] VITALS: BP 130/60; PULSE 73; TEMP 37.1; O2SAT 94; BMI 33.4
--- NOTE | 2023-06-19 13:39 | AM.OFFWIN_ITS ---
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 Patient states he developed nasal/sinus congestion, rhinorrhea, sore throat, and headaches approximately 1 week ago. He states that the symptoms improved but then he started to develop chest congestion with a productive cough and low-grade fever/chills. He reports associated shortness of breath and wheezing. He denies any chest pain. He denies any abdominal pain or nausea/vomiting/diarrhea. 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 Current occupational exposures/hazards: Yes Cognitive needs: No Hearing needs: No Vision needs: No Review of Systems Const All systems reviewed & are unremarkable except as noted in HPI and below Reports no additional complaints Eyes Reports no additional complaints ENT Reports no additional complaints Card Reports no additional complaints Resp Reports no additional complaints GI Reports no additional complaints Reports no additional complaints Musc Reports no additional complaints Skin/Breast Reports system reviewed and no additional complaints, except as documented Neuro Reports no additional complaints Psych Reports no additional complaints Endo Reports no additional complaints Ant/Lymph Reports no additional complaints Aller/Immun Reports no additional complaints Physical Exam Vital Signs: Last Vital Signs Temp 98.7 F 06/19/23 13:39 Pulse 73 06/19/23 13:39 BP 130/60 06/19/23 13:39 Pulse Ox 92 06/19/23 13:39 Oxygen Delivery Method Room Air 06/19/23 13:39 BMI result Body Mass Index 33.4 Const Other: Vital signs reviewed. Constitutional: Non-toxic appearing. No acute distress. Well-developed and well-nourished. HEENT: Normocephalic and atraumatic. Tympanic membranes without erythema, edema, or bulging bilaterally. External auditory canals without erythema or edema bilaterally. Moist mucous membranes. No pharyngeal erythema or exudates. Skin: Warm and dry. No rashes or lesions noted. Neck: Full and painless range of motion. No cervical lymphadenopathy. Cardio: Regular rate and rhythm. No murmurs, gallops, or rubs. No lower extremity edema. No JVD. Pulmonary: No respiratory distress. No accessory muscle usage. There are scattered inspiratory/expiratory wheezing as well as scattered rhonchi, which clear with coughing. He has a frequent junky/productive cough. Gastrointestinal: Soft, nontender, and nondistended in all 4 quadrants. Musculoskeletal: Normal range of motion in joints throughout the body. No deformity or other signs of injury. Neuro: Alert and oriented x4. Cranial nerves 2-12 grossly intact. No focal deficits appreciated. Psych: Normal mood and affect. Office Procedures Nebulizer Treatment Nebulizer Treatment [id number]/MDI RX initial, or Nebulizer Subsequent Treatment Office Meds albuterol sulfate 2.5 mg/3 mL (0.083 %) solution for nebulization Performing Provider: JENNIFFER Segura Performing Location: [facility] Administered by: Aleksandra Albrecht RN on 06/19/23 14:23 Dose Route Admin Location Dispensed Lot Number Expiration Date NDC Scale Clerk 2.5 mg inhalation 3 mL [id number] 07/02/24 40749-942-29 [employer] Assessment & Plan Assessment & Plan (1) Acute bronchitis: Code(s): J20.9 - Acute bronchitis, unspecified Plan This is a 66-year-old male who presented to the walk-in clinic complaining of chest congestion, productive cough, and shortness of breath x3 days in the setting of viral URI symptoms x7 days. On physical examination, he is scattered inspiratory/expiratory wheezing and rhonchorous breath sounds likely coughing. History and physical most consistent with acute viral versus bacterial bronchitis in the setting of acute viral upper respiratory tract infection. Patient was given an albuterol nebulizer treatment in the office with improvement in his symptoms and improvement in his lung sounds. He will be sent home on p.o. prednisone 40 mg daily x5 days as well as p.o. azithromycin 500 mg today followed by 250 mg daily x4 days. Recommended symptomatic management including [id number] guaifenesin as a mucolytic, ulqw-iho-relxwgc decongestants, fluticasone/normal saline nasal spray, and utilizing a humidifier in his room at bedtime. Patient was advised to follow-up here or proceed to the emergency room if he were to develop persistent/worsening symptoms. Orders: Orders AMB Nebulizer Treatment Today J20.9 - Acute bronchitis, unspecified SARS-CoV2/FLU/RSV Today R09.89 - Other specified symptoms and signs involving the circulatory and respiratory systems Medications: New prednisone 40 mg (2 x 20 mg) PO DAILY 10 tabs 0RF azithromycin For 250 mg dose pack: take 500 mg today (day 1), then 250 mg for 4 days (days 2-5) PO 6 tabs 0RF Coding Level of Care Code Est Pt Level 3 (49186) Diagnoses Acute bronchitis J20.9 CPT Codes Nebulizer Treatment - Nebulizer Treatment, initial or subsequent: 18986- Nebulizer/MDI RX initial, or Nebulizer Subsequent Treatment ([id number])
== END 2023-06-19 14:31 | disposition home or self-care (01) ==
PROVIDERS: PCP Nurse Practitioner Primary Care; Visit Provider Physician Assistant Medical
DX: J20.9 Acute bronchitis, unspecified (principal)
CPT/HCPCS: 94640; 99213; J7613

== ENCOUNTER 2023-06-19 16:58 | Outpatient (REF) | payer MEDICARE, SELFPAY ==
[2023-06-19 17:46] LABS: Influenza A PCR NEGATIVE (Negative); Influenza B PCR NEGATIVE (Negative); Resp Syncy Virus RNA Qual PCR NEGATIVE (Negative); SARS COV2 PCR INHOUSE POSITIVE (Negative)
== END 2023-06-19 16:59 | disposition home or self-care (01) ==
LOC: HO.LNP 16:58
PROVIDERS: Visit Provider Physician Assistant Medical
DX: R09.89 Other specified symptoms and signs involving the circulatory and respiratory systems (principal); Z11.52 Encounter for screening for COVID-19; Z20.828 Contact with and (suspected) exposure to other viral communicable diseases
CPT/HCPCS: 0241U

== ENCOUNTER 2023-08-06 13:44 | Outpatient (REF) | payer MEDICARE, SELFPAY ==
--- NOTE | ~2023-08-06 | CT_ITS ---
EXAMINATION: CT ABDOMEN AND PELVIS WITH CONTRAST CLINICAL INFORMATION: Follow-up linear shadowing opacity in the left inguinal region; left inguinal strain. COMPARISON: Pelvic ultrasound dated 06/04/2023. TECHNIQUE: Multidetector volumetric images were obtained from the superior aspect of the liver through the pubic symphysis following administration 85 mL of Omnipaque 350 intravenous contrast. Sagittal and coronal reformatted images were obtained on the technologist's workstation. Oral contrast: No This CT examination was performed using dose optimization techniques as appropriate, variously including the following: *Automated exposure control *Adjustment of mA and/or kV according to patient size (this includes techniques or standardized protocols for targeted exams where dose is matched to indication/reason for exam; i.e. extremities or head) *Use of iterative reconstruction technique DLP: 687 mGy-cm FINDINGS: LUNG BASES: There is bibasilar dependent scar/subsegmental atelectasis. LIVER, GALLBLADDER, AND BILIARY TREE: The liver is normal in size, shape, and attenuation. There are 4 subcentimeter low-attenuation probable cysts or benign hemangiomas within the bilateral hepatic lobes (3:17, 27, 40 and 41). These are too small to fully characterize with CT, and some are new from 07/17/2013. No biliary ductal dilatation is present. The gallbladder is unremarkable with no evidence of radiopaque gallstones, gallbladder wall thickening, or obvious pericholecystic inflammatory changes. PANCREAS: Unremarkable. SPLEEN: Unremarkable. ADRENAL GLANDS: Unremarkable. KIDNEYS AND URETERS: The kidneys are normal in size, shape, and attenuation. No hydronephrosis, hydroureter, or calculi seen. No perinephric stranding. BLADDER: Unremarkable. GASTROINTESTINAL TRACT: There is mild to moderate diverticulosis, without acute diverticulitis. No bowel obstruction, free intraperitoneal air or abscess is seen. There is no focal bowel wall thickening. No appendicitis or diverticulitis is seen. ABDOMINAL WALL: There are small fat-containing bilateral inguinal hernias. LYMPH NODES: Normal. VASCULAR: There is mild aortoiliac atherosclerotic calcification. No abdominal aortic aneurysm or dissection is seen. PELVIC VISCERA: The prostate and seminal vesicles are unremarkable. There are calcifications in the bilateral inguinal canals, which are likely vascular in origin. These are similar in appearance to 07/15/2013. OSSEOUS STRUCTURES: There is multi-level marked lower thoracic and lumbar anterior endplate arthropathy, with an appearance suggesting possible DISH (diffuse idiopathic skeletal hyperostosis). There is marked degenerative disc disease at L5-S1. No acute or aggressive osseous finding is noted. CT/CT abdomen pelvis w IV con IMPRESSION: 1. There are small fat-containing bilateral inguinal hernias. 2. Within the bilateral spermatic cords, there are chronic, likely vascular calcifications, accounting for the ultrasound findings. 3. There are low-attenuation probable cysts or benign hemangiomas within the bilateral hepatic lobes, too small to fully characterize with CT. Some but not all were seen on the prior CT examinations. These are of doubtful clinical significance. These could be more fully evaluated with ultrasound or MRI, if clinically indicated (i.e., history of hepatocellular disease or known malignancy). 4. Skeletal findings suggest possible DISH. No aggressive osseous lesion is seen. Fleischner guidelines were followed.
[2023-08-06] MEDS: Barium Sulfate Oral (Vanilla) 450 ML ORAL.SUSP 900 ML PO (16:10)
[2023-08-06] MEDS: iohexoL 350 MG/ML 75 ML INFUS..BTL 85 ML IV (16:10)
[2023-08-07 08:25] LABS: Creatinine POC 0.9 mg/dL (0.5-1.4); GFR POC > 60
== END 2023-08-06 13:45 | disposition home or self-care (01) ==
LOC: HO.CT 13:44
PROVIDERS: PCP Nurse Practitioner Primary Care; Visit Provider Nurse Practitioner Primary Care
DX: S76.212A Strain of adductor muscle, fascia and tendon of left thigh, initial encounter (principal)
CPT/HCPCS: 74177; 82565; Q9967

== ENCOUNTER 2023-08-10 07:46 | Outpatient (AMB) | payer MEDICARE, SELFPAY ==
--- NOTE | 2023-08-10 08:11 | MHC.PC.OV ---
Vital Signs 08/10/23 08:13 Height 5 ft 9 in Weight 241 lb 2 oz BMI 35.6 BP 126/74 Blood Pressure Location Rt brachial Position Sitting Pulse 66 Pulse Source Pulse Oximeter Pulse Oximetry (%) 95 Oxygen Delivery Method Room Air Intake Visit Reasons: Annual PE Intake Note: Pt is here for his Annual PE Allergies No Known Allergies [No Known Allergies*] Allergy (Verified 08/10/23 08:39) Medication List - Last Reconciled 08/10/23 by DIVYA Nolasco albuterol sulfate 90 mcg/actuation 2 puffs inhalation Q6H PRN atorvastatin 40 mg PO DAILY cholecalciferol (vitamin D3) 50 mcg PO DAILY fish oil-dha-epa 1,200-144-216 mg caps PO Tobacco use date assessed: 08/10/23 Fall risk assessment: No Falls in past year Last assessed Fall Risk: 08/10/23 Dental Screening Dental Screen Date: 08/10/23 Did you have a dental visit in the last 12 months?: Yes Did you have a dental problem in the last 6 months where you did not have access to dental care?: No Was dental information given to patient?: Patient has dentist HPI HPI Comments History of Present Illness Details Patient is a 67-year-old male here today for physical exam. Patient's most recent PSA drawn was 3 months prior. Patient is taking 40 mg of atorvastatin due to hyperlipidemia, will redraw labs. Patient's last colonoscopy was 02/18, with recommendation for 10 year follow-up. Patient has chief complaint of cracking in his cervical spine. 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 Has use chiropractor in the past with some success, does not want to continue that route because he does not like the adjustment. Patient denies any numbness and tingling of limbs. Denies any trauma to the area. Patient does not use any medication for relief. Patient also states that he had COVID 2 months prior to this appointment. States that he feels intermittent fatigue, but is much improved from 2 months ago. 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 Patient does not have albuterol inhaler, will provide today. Will also obtain chest x-ray. Patient was also started on atorvastatin 40 mg at previous visit. Will redraw labs today. Will get cervical spine x-ray. Will refer to physical therapy. 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 1. Little interest or pleasure in doing things: not at all 2. Feeling down, depressed, or hopeless: not at all 3. Trouble falling or staying asleep, or sleeping too much: not at all 4. Feeling tired or having little energy: not at all 5. Poor appetite or overeating: not at all 6. Feeling bad about yourself - or that you are a failure or have let yourself or your family down: not at all 7. Trouble concentrating on things, such as reading the newspaper or watching television: not at all 8. Moving or speaking so slowly that other people could have noticed. Or the opposite - being so fidgety or restless that you have been moving around a lot more than usual: not at all 9. Thoughts that you would be better off or of hurting yourself in some way: not at all Total score: 0 Depression Screening Interpretation: Negative Depression Screening Done: Yes 65682 - PHQ-9 Billing: Yes Source: Developed by Drs. Marc Nathan, Tyra Bhanu Leger and colleagues, with an educational alex from [employer]ication Review. Thrive Questionnaire Date Thrive assessed: 08/10/23 I am a: Patient What is your living situation today?: I have a steady place to live Within the past 12 months, did the food you bought not last and you didn't have the money to get more?: Never true Within the past 12 months, did you worry whether your food would run out before you got money to buy more?: Never true Do you have trouble paying for medicines?: No Do you have trouble getting transportation to medical appointments?: No Do you have trouble paying your heating and electricity bill?: No Do you have trouble taking care of your child, family member or friend?: No Do you have trouble with day-to-day activities such as bathing, preparing meals, shopping, managing finances, etc.?: No Are you currently unemployed and looking for a job?: No Are you interested in more education?: No THRIVE Score: 0 AUDIT C Alcohol Use Questionnaire (AUDIT-C) 1. How often do you have a drink containing alcohol?: 2-3 times a week 2. How many drinks containing alcohol do you have on a typical day when you are drinking?: 1 or 2 3. How often do you have six or more drinks on one occasion?: Never Total Score: 3 ALLIE-7 AMB Questionnaire ALLIE-7 Date ALLIE - 7 assessed: 08/10/23 Feeling nervous, anxious, or on edge: 0 = Not at all Not being able to stop or control worryin = Not at all Worrying too much about different things: 0 = Not at all Trouble relaxin = Not at all Being so restless that it is hard to sit still: 0 = Not at all Becoming easily annoyed or irritable: 0 = Not at all Feeling afraid as if something awful might happen: 0 = Not at all Total ALLIE-7 score (0-4 normal; 5-9 mild; 10-14 moderate; 15-21 severe): 0 Source: Developed by Drs. Marc Nathan, Bhanu Cruz and colleagues, with an educational alex from Medication Review. ALLIE-7 Assessment Billing ALLIE-7 Assessment Tool: ALLIE-7 Assessment 14437 Review of Systems Const All systems reviewed & are unremarkable except as noted in HPI and below Physical exam (Primary Care) Vital Signs: Last Vital Signs Pulse 66 08/10/23 08:13 BP 126/74 08/10/23 08:13 Pulse Ox 95 08/10/23 08:13 Oxygen Delivery Method Room Air 08/10/23 08:13 Care Plan Goal for BP management: Vital signs reviewed are stable. BMI result Body Mass Index 35.6 Tobacco/Smoking Status: Tobacco use Status Tobacco use date assessed 08/10/23 08/10/23 08:17 Patient Tobacco Use Status Former Tobacco user 08/10/23 08:12 Tobacco use type Cigar 08/10/23 08:12 e-Cigarette/Vaping Use Never Used 08/10/23 08:12 PHQ-9: PHQ-9 Score PHQ-9: Total score 0 08/10/23 08:24 Depression Screening Interpretation: Negative Thrive Assessment: Date of Thrive Assessment Date Thrive assessed 08/10/23 08/10/23 08:24 Const Other: Appearance: Alert.? Oriented X3.? No acute distress.? Head: Normocephalic, atraumatic, no step-offs or deformities Eyes: Pupils equal, round and reactive to light.? ENT: Pharynx normal.? Neck: Normal inspection.? Neck supple.? CVS: Normal heart rate and rhythm.? Pulses normal.? Respiratory: No respiratory distress.? Breath sounds normal.? Abdomen: Soft and nontender.? Skin: Skin warm and dry.? Normal skin color.? Normal skin turgor.? Extremities: No lower extremity edema.? No calf ttp. 5/5 strength to bilateral upper and lower extremities Back: No midline tenderness, no C-spine tenderness, full range of motion, no CVA tenderness bilaterally. Limited range of motion to rotation of neck. Neuro: Oriented X 3.? No motor deficit.? No sensory deficit. CN 2-12 intact Assessment and Plan Assessment & Plan (1) ANTHONY on CPAP: Comment: OBSTRUCTIVE SLEEP APNEA, PATIENT ON CPAP, AND IS VERY COMPLIANT, SLEEPS AT LEAST 6 HOURS WITH THE CPAP ON EVERY NIGHT. Code(s): G47.33 - Obstructive sleep apnea (adult) (pediatric); Z99.89 - Dependence on other enabling machines and devices (2) Strain of left inguinal region: Comment: Imaging from US indicated that a CT scan is needed. CT with contrast of ABD ordered. Will follow up with results. Will refer if necessary. Code(s): S76.212A - Strain of adductor muscle, fascia and tendon of left thigh, initial encounter (3) Hyperlipidemia: Comment: Patient will continue to take his atorvastatin. Patient will follow-up lab draw today. Code(s): E78.5 - Hyperlipidemia, unspecified Qualifiers: Hyperlipidemia type: unspecified Qualified Code(s): E78.5 - Hyperlipidemia, unspecified (4) Crepitus of cervical spine: Comment: Will obtain x-ray of cervical spine, will refer to physical therapy Code(s): M24.80 - Other specific joint derangements of unspecified joint, not elsewhere classified Orders: Orders Comprehensive Met. Panel Today Z91.89 - Other specified personal risk factors, not elsewhere classified Complete Blood Count Auto Diff Today Z13.0 - Encounter for screening for diseases of the blood and blood-forming organs and certain disorders involving the immune mechanism XR chest 2V Today R07.89 - Other chest pain XR cervical spine 2V Today M24.80 - Other specific joint derangements of unspecified joint, not elsewhere classified Lipid Panel Today E78.5 - Hyperlipidemia, unspecified PT Evaluation and Treatment Today M24.80 - Other specific joint derangements of unspecified joint, not elsewhere classified Medications: New albuterol sulfate 90 mcg/actuation 2 puffs inhalation Q6H PRN 6.7 grams 0RF shortness of breath or wheezing Coding Level of Care Code Est Pt Level 4 (21026) Diagnoses ANTHONY on CPAP G47.33; Z99.89 Strain of left inguinal region S76.212A Hyperlipidemia, unspecified hyperlipidemia type E78.5 Hyperlipidemia type: unspecified Crepitus of cervical spine M24.80 Additional Codes ALLIE-7 Assessment Billing - ALLIE-7 Assessment Tool: ALLIE-7 Assessment [id number] ([id number]) Time Spent (min) 38
[2023-08-10 08:13] VITALS: BP 126/74; PULSE 66; O2SAT 95; BMI 35.6
== END 2023-08-10 09:19 | disposition home or self-care (01) ==
PROVIDERS: PCP Internal Medicine; Visit Provider Nurse Practitioner Primary Care
DX: G47.33 Obstructive sleep apnea (adult) (pediatric) (principal); Z99.89 Dependence on other enabling machines and devices; S76.212A Strain of adductor muscle, fascia and tendon of left thigh, initial encounter; E78.5 Hyperlipidemia, unspecified; M24.80 Other specific joint derangements of unspecified joint, not elsewhere classified
CPT/HCPCS: 99214

== ENCOUNTER 2023-08-10 08:53 | Outpatient (REF) | payer MEDICARE, SELFPAY ==
--- NOTE | ~2023-08-10 | XR_ITS ---
EXAMINATION: XR CHEST CLINICAL INFORMATION: Chest pain COMPARISON: Previous chest x-ray September 2020 TECHNIQUE: 2 views of the chest were obtained. FINDINGS: The cardiac and mediastinal contours are stable. The lungs are clear. No pleural effusion or pneumothorax. Degenerative changes of the spine. XR/XR chest 2V IMPRESSION: No evidence for acute disease in the chest.
--- NOTE | ~2023-08-10 | XR_ITS ---
EXAMINATION: XR CERVICAL SPINE CLINICAL INFORMATION: Reason for Exam M24.80 - Other specific joint derangements of unspecified joint, not els... COMPARISON: None available. TECHNIQUE: 4 views of the cervical spine including swimmer's view were obtained. FINDINGS: Bone alignment is normal. No fracture or dislocation. There is multilevel degenerative spondylosis from C3-C4 to C7-T1. There is disc space narrowing from C4-C5 to C7-T1. There is bilateral facet arthritis, right greater than left. Prevertebral soft tissues are normal. Question right apical pulmonary nodule overlying the right posterior medial second rib. When compared with chest x-ray the same day this may be related to bony osteophyte. XR/XR cervical spine 2V IMPRESSION: Multilevel degenerative changes. Question medial right apical pulmonary nodule overlying the right medial second rib. When compared with previous chest x-ray, this may correspond to bony osteophyte. Follow-up apical lordotic view of the chest or chest CT should be considered.
== END 2023-08-10 08:54 | disposition home or self-care (01) ==
LOC: HO.HMGCX 08:53
PROVIDERS: PCP Nurse Practitioner Primary Care; Visit Provider Nurse Practitioner Primary Care
DX: R07.89 Other chest pain (principal); M24.80 Other specific joint derangements of unspecified joint, not elsewhere classified
CPT/HCPCS: 71046; 72040

== ENCOUNTER 2023-08-24 07:49 | Outpatient (REF) | payer MEDICARE, SELFPAY ==
--- NOTE | ~2023-08-24 | US_ITS ---
EXAMINATION: US ABDOMEN LIMITED CLINICAL INFORMATION: Hemangioma of intra-abdominal structures. COMPARISON: CT abdomen and pelvis with contrast 08/06/2023. X-ray abdomen and chest 07/15/2013. TECHNIQUE: Real-time imaging of the right upper quadrant abdominal viscera. FINDINGS: PANCREAS: Normal. LIVER: The liver is normal in size. The liver contour is normal. Parenchymal echogenicity is normal. Within the right hepatic lobe, a 1.0 bilobed simple cyst is seen. Within the left hepatic lobe, 7 mm and 6 mm benign, simple cysts are seen. These require no imaging follow-up. There is no intrahepatic biliary duct dilatation seen. GALLBLADDER: Normal. The gallbladder is physiologically distended without evidence of stones, sludge, polyps, wall thickening or pericholecystic fluid. COMMON BILE DUCT: Normal in caliber measuring 0.5 cm in diameter. RIGHT KIDNEY: Normal. No hydronephrosis. No renal calculi or focal parenchymal lesions. The kidney measures 13.1 cm in maximum dimension. FREE FLUID: None. US/US abdomen limited IMPRESSION: There are benign, simple hepatic cysts, which correlate with the CT findings in question. No solid hepatic lesion is seen. The examination is otherwise unremarkable.
== END 2023-08-24 07:50 | disposition home or self-care (01) ==
LOC: HO.HMGCX 07:49
PROVIDERS: PCP Nurse Practitioner Primary Care; Visit Provider Nurse Practitioner Primary Care
DX: D18.03 Hemangioma of intra-abdominal structures (principal)
CPT/HCPCS: 76705

== ENCOUNTER 2023-08-26 09:54 | Outpatient (REF) | payer MEDICARE, SELFPAY | END 2023-08-26 09:55 | disposition home or self-care (01) | LOC: HO.SH 09:54 | PROVIDERS: Visit Provider Nurse Practitioner Primary Care | DX: Z01.118 Encounter for examination of ears and hearing with other abnormal findings (principal); H90.3 Sensorineural hearing loss, bilateral; H93.11 Tinnitus, right ear | CPT/HCPCS: 92557; 92567; 92625 ==

== ENCOUNTER 2023-08-28 10:39 | Outpatient (AMB) | payer MEDICARE, SELFPAY ==
[2023-08-28 11:09] VITALS: BP 130/70; BMI 35.9
--- NOTE | 2023-08-28 11:09 | MHC.OFFVIS ---
Vital Signs 08/28/23 11:09 Height 5 ft 9 in Weight 243 lb 6.245 oz BMI 35.9 BP 130/70 Blood Pressure Location Lt brachial Position Sitting Pulse Source Pulse Oximeter Intake Visit Reasons: 6 mth f/up Supervising Nurse Required: No Accompanied by: Self / Same As Patient Allergies No Known Allergies [No Known Allergies*] Allergy (Verified 08/10/23 08:39) Medication List - Last Reconciled 08/28/23 by Toan Wright MD albuterol sulfate 90 mcg/actuation 2 puffs inhalation Q6H PRN atorvastatin 40 mg PO DAILY cholecalciferol (vitamin D3) 50 mcg PO DAILY fish oil-dha-epa 1,200-144-216 mg caps PO HPI Comments Details: 67-year-old gentleman with background history of hyperlipidemia presenting for dyspnea on exertion. He said during the wintertime he had exertional shortness of breath as well as some chest discomfort. He was smoking cigars at that time. He was referred to pulmonology and was seen by Dr. Corbett. He is saying that he continues to have shortness of breath. He also gets shortness of breath if he bends down. He has gained weight and he has abdominal obesity. He has no chest discomfort. Physically he is active at work but does not exercise regularly. He was referred for stress echocardiogram. This was essentially normal. He was advised to lose some weight and to see if his breathing improves. He returns for follow-up today. He has lost 12 lb since his previous visit. He is saying by his home scale he has lost 20 lb. He is saying that he is feeling much better and able to do more and his shortness of breath is improving. 02/18/2023: He returns for follow-up. He is saying that he exercise and lost weight and felt better from dyspnea point of view. He is saying he has stopped losing weight despite trying and unable to lose further weight. His dietary habits are that he does not eat a breakfast, he eats saw small lunch and then he has a big dinner. I explained to him that he needs to reverse his eating pattern and eat smaller meals at dinnertime. Overall his dyspnea has improved significantly with weight loss and he is denying any other concerns right now. 08/28/23: He returns for f/u. He had COVID in jun and since then he has been more SOB. He has also gained 20 pounds which is probably causing some dyspnea too. No chest pain. 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 Current occupational exposures/hazards: Yes Cognitive needs: No Hearing needs: No Vision needs: No Review of Systems Const Denies chills, Denies fatigue, Denies fever(s), Denies frequent falls, Denies weakness, Denies weight gain and Denies weight loss ENT Denies dizziness Card Denies chest pain, Denies leg edema, Denies lightheadedness, Denies palpitations, Denies dyspnea and Denies dyspnea on exertion Resp Denies cough, Denies dyspnea and Denies dyspnea on exertion GI Denies hematochezia Musc Denies abnormal gait, Denies muscle weakness, Denies numbness, Denies radiating pain into limb and Denies tingling Neuro Denies abnormal gait, Denies dizziness, Denies frequent falls, Denies numbness, Denies tingling and Denies weakness Endo Denies fatigue and Denies palpitations Physical Exam Vital Signs: Last Vital Signs BP 130/70 08/28/23 11:09 BMI result Body Mass Index 35.9 GENERAL APPEARANCE: in no acute distress, pleasant. NECK: no carotid bruit, no jugular venous distention. SKIN: no suspicious lesions, warm and dry. HEART: no murmurs, regular rate and rhythm. LUNGS: clear to auscultation bilaterally. ABDOMEN: soft, nontender. EXTREMITIES: no edema. PERIPHERAL PULSES: equal. NEUROLOGIC: No gross deficits, AAO X 3 Assessment & Plan Assessment & Plan (1) Dyspnea on exertion: Comment: DYSPNEA ON EXERTION IS SECONDARY TO OBESITY AND MILD COPD. Code(s): R06.00 - Dyspnea, unspecified Category: Medical (2) Obesity (BMI 30-39.9): Comment: HE IS A GAIN MADE AWARE OF HIS WEIGHT GAIN AND ADVISED TO WATCH HIS DIET AND TRY TO LOSE 5-10 LB OF WEIGHT Code(s): E66.9 - Obesity, unspecified Category: Medical Plan Pleasant 67 gentleman is here for follow-up. He was seen for dyspnea on exertion and abnormal ECG showing anteroseptal infarct. He underwent stress testing which was normal. He previously lost weight which improved his dyspnea significantly. He had COVID in Feb and since then he has been more SOB. He has also gained 20 pounds. We will arrange f/u with Pulm. He will try to diet and exercise and see if he can lose some weight. If with weight loss his symptoms improve then no further intervention otherwise we may have to consider left and right heart cath. This will also depend on if pulmonary find any COVID related lung issue or not. F/U in few months. Thank you for allowing me to participate in the care of your patient. Please feel free to contact me if you have any questions. Coding Level of Care Code Est Pt Level 4 (67923) Diagnoses Dyspnea on exertion R06.00 Obesity (BMI 30-39.9) E66.9
== END 2023-08-28 11:36 | disposition home or self-care (01) ==
PROVIDERS: PCP Nurse Practitioner Primary Care; Visit Provider Internal Medicine Cardiovascular Disease
DX: R06.00 Dyspnea, unspecified (principal); E66.9 Obesity, unspecified
CPT/HCPCS: 99214

== ENCOUNTER → 2023-08-28 10:39 | Outpatient (BNVA) | payer MEDICARE, SELFPAY | PROVIDERS: PCP Nurse Practitioner Primary Care; Visit Provider Internal Medicine Cardiovascular Disease | DX: R06.00 Dyspnea, unspecified (principal); R06.02 Shortness of breath; E66.9 Obesity, unspecified; Z68.35 Body mass index [BMI] 35.0-35.9, adult; Z86.16 Personal history of COVID-19 | CPT/HCPCS: 99212 ==

== ENCOUNTER 2023-09-16 09:32 | Outpatient (AMB) | payer MEDICARE, SELFPAY ==
[2023-09-16 09:50] VITALS: BP 120/68; PULSE 62; O2SAT 95; BMI 35.2
--- NOTE | 2023-09-16 09:50 | MHC.OFFVIS ---
Vital Signs 09/16/23 09:50 Height 5 ft 9 in Weight 238 lb 1.588 oz BMI 35.2 BP 120/68 Blood Pressure Location Lt brachial Position Sitting Pulse 62 Pulse Source Pulse Oximeter Pulse Oximetry (%) 95 Oxygen Delivery Method Room Air Intake Visit Reasons: nery Intake Note: pt is here for follow up for nery but he was put in for an earlier appt due to covid in June and is now having shortness of breath with exertion, and at times even with talking. 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 HE USES HIS CPAP VERY REGULARLY AND SLEEPS WELL. THERE IS NO ISSUE WITH THE CPAP DEVICE ARE THE MASK. THIS TIME HE IS BEING SEEN EARLIER BY 1 WEEK BECAUSE HE COMPLAINS OF SHORTNESS OF BREATH ON WALKING AROUND. DENIES COUGH OR WHEEZING. ABOUT 2 MONTHS AGO HE DID HAVE COVID INFECTION. RECOVERED RIGHT AT HOME. SINCE THEN HE CONTINUES TO BE SHORT OF BREATH ON MINIMAL TO MODERATE EXERTION. HE HAS VERY LITTLE COUGH OR EXPECTORATION. HE HAD A CHEST X-RAY IN JUNE 2023, WHICH WAS UNREMARKABLE. 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 Current occupational exposures/hazards: Yes Cognitive needs: No Hearing needs: No Vision needs: No Review of Systems Const All systems reviewed & are unremarkable except as noted in HPI and below Eyes Reports no additional complaints ENT Reports no additional complaints Card Denies chest pain, Denies irregular heart rhythm, Denies leg edema and Reports dyspnea on exertion (mild, on walking around , especially if going up hill.) Resp Denies cough, Reports dyspnea on exertion (mild, on walking around , especially if going up hill.) and Denies wheezing GI Reports no additional complaints Reports no additional complaints Musc Reports no additional complaints Skin/Breast Reports system reviewed and no additional complaints, except as documented Neuro Reports no additional complaints Psych Reports no additional complaints Aller/Immun Denies wheezing Physical Exam Vital Signs: Last Vital Signs Pulse 62 09/16/23 09:50 BP 120/68 09/16/23 09:50 Pulse Ox 95 09/16/23 09:50 Oxygen Delivery Method Room Air 09/16/23 09:50 BMI result Body Mass Index 35.2 Const General: healthy appearing (Except for being overweight), comfortable, no acute distress, alert and awake Orientation/consciousness: patient oriented x3 HEENT Head: Yes normal to inspection General nose exam: No nasal polyps present and No nasal discharge present Face and sinus: Yes sinuses nontender Mouth: oropharynx normal Throat: Yes posterior oropharynx normal (Space compromised, Mallampati class 3) Eyes General: appearance normal, both eyes and all related structures Neck Neck: Yes normal visual inspection, Yes no lymphadenopathy, Yes trachea midline and Yes no JVD Thyroid: Thyroid normal Chest Chest palpation & inspection: normal inspection of the chest, normal palpation of entire chest wall and no tenderness Resp Effort & Inspection: normal respiratory effort Auscultation: clear to auscultation bilaterally, no crackles and no wheezes Cardio Palpation: normal PMI Rate: regular rate Rhythm: regular rhythm Heart sounds: no gallops and no murmurs Peripheral pulses: Peripheral pulses 2+ throughout GI Palpation (GI): Soft to palpation, nontender, No hepatosplenomegaly present, no masses and Other GI palpation findings present (Abdomen is obese and protuberant) Auscultation: normal bowel sounds Back/Spine/Pelvis Thoracic/Lumbar Spine: thoracic and lumbar spine normal to inspection Skin General skin exam: no rashes or lesions noted Neuro General: patient oriented x3 and no focal motor deficits Cranial nerves: Yes CN's II-XII intact bilaterally Extrem General: Yes normal to inspection, Yes no clubbing, cyanosis or edema and Yes no calf tenderness Psych Appearance: grossly normal and well kempt Speech and movement: Normal speech and movement present Results Reviewed Results Reviewed: His compliance report for the last 30 nights is reviewed and is good. He used 30/30 nights and average use it per night 6 hours 14 minutes. Pressure used mostly 17-19 cm. .No special air leak Residual AHI 6.0 which is slightly high. Assessment & Plan Assessment & Plan (1) Obesity (BMI 30-39.9): Comment: Patient did gain about 15 lb of weight after he had COVID infection in June, and his activity level was decreased. This may also had made him more short of breath on walking around. This may also be the reason why he still has I residual AHI. Code(s): E66.9 - Obesity, unspecified Category: Medical Plan: Stress that he has to lose weight about 5-10 lb at least. He is going to do his best. (2) NERY on CPAP: Comment: OBSTRUCTIVE SLEEP APNEA, PATIENT ON CPAP, AND IS VERY COMPLIANT, SLEEPS AT LEAST 6 HOURS WITH THE CPAP ON EVERY NIGHT. Code(s): G47.33 - Obstructive sleep apnea (adult) (pediatric); Z99.89 - Dependence on other enabling machines and devices Category: Medical Plan: Commended for his good compliance. As his residual AHI is 6 and he is using relatively high pressure. I think the best step would be to lose weight. (3) COPD (chronic obstructive pulmonary disease): Comment: PER PULMONARY FUNCTION TEST HIS OBSTRUCTIVE AIRWAY DISORDER WAS MILD, HE DOES NOT NEED TO USE ANY MAINTENANCE BRONCHODILATOR THERAPY . DYSPNEA ON EXERTION IS DUE TO COMBINATION OF MILD COPD AND OBESITY, AND NOT BOTHERSOME AT THIS TIME. USE RESCUE INHALOR ( ALBUTEROL ) ONLY PRN . Code(s): J44.9 - Chronic obstructive pulmonary disease, unspecified Category: Medical Plan: USE ALBUTEROL HFA 2 PUFFS Q 6 HOURS ONLY P.R.N. IF HE HAS ANY WHEEZING INCENTIVE SPIROMETER GIVEN FROM THE OFFICE AND ADVISED TO DO BREATHING EXERCISES AT LEAST 3 TO 4 TIMES A DAY. Coding Level of Care Code Est Pt Level 3 (03332) Diagnoses Obesity (BMI 30-39.9) E66.9 NERY on CPAP G47.33; Z99.89 COPD (chronic obstructive pulmonary disease) J44.9
== END 2023-09-16 10:37 | disposition home or self-care (01) ==
PROVIDERS: PCP Nurse Practitioner Primary Care; Visit Provider Internal Medicine
DX: E66.9 Obesity, unspecified (principal); G47.33 Obstructive sleep apnea (adult) (pediatric); Z99.89 Dependence on other enabling machines and devices; J44.9 Chronic obstructive pulmonary disease, unspecified
CPT/HCPCS: 99213

== ENCOUNTER → 2023-09-16 09:32 | Outpatient (BNVA) | payer MEDICARE, SELFPAY | PROVIDERS: PCP Nurse Practitioner Primary Care; Visit Provider Internal Medicine | DX: G47.33 Obstructive sleep apnea (adult) (pediatric) (principal); J44.9 Chronic obstructive pulmonary disease, unspecified; R06.02 Shortness of breath; U09.9 Post COVID-19 condition, unspecified; E66.9 Obesity, unspecified; Z68.35 Body mass index [BMI] 35.0-35.9, adult; Z99.89 Dependence on other enabling machines and devices | CPT/HCPCS: 99212 ==

== ENCOUNTER 2023-12-25 08:57 | Outpatient (AMB) | payer MEDICARE, SELFPAY ==
[2023-12-25 09:00] VITALS: BP 118/66; PULSE 60; O2SAT 95; BMI 35.3
--- NOTE | 2023-12-25 09:00 | A.OFFPC_ITS ---
Vital Signs 12/25/23 09:00 Height 5 ft 9 in Weight 239 lb BMI 35.3 BP 118/66 Blood Pressure Location Lt brachial Position Sitting Pulse 60 Pulse Source Pulse Oximeter Pulse Oximetry (%) 95 Oxygen Delivery Method Room Air Intake Visit Reasons: Transfer of care from [facility] Intake Note: Pt is here today for a follow up visit establishing from [facility]. Allergies No Known Allergies [No Known Allergies*] Allergy (Verified 12/25/23 09:02) Medication List - Last Reconciled 12/25/23 by Jeannette Lucio MD albuterol sulfate 90 mcg/actuation 2 puffs inhalation Q6H PRN atorvastatin 40 mg PO DAILY cholecalciferol (vitamin D3) 50 mcg PO DAILY fish oil-dha-epa 1,200-144-216 mg caps PO Tobacco use date assessed: 12/25/23 Fall risk assessment: No Falls in past year Last assessed Fall Risk: 12/25/23 Dental Screening Dental Screen Date: 08/10/23 HPI Transfer of care from [facility] HPI Details Patient presents for the follow-up of hyperlipidemia. He reports chronic dyspnea on exertion. He had negative cardiac workup and normal pulmonary function test. He reports feeling anxious and stressed out about taking care of his grandson. Patient denies depression and used to see a therapist for chronic anxiety which was not helpful [facility] Medical History (Updated 12/25/23 @ 10:30 by Jeannette Lucio MD) Osteoarthritis of knee, unilateral COPD (chronic obstructive pulmonary disease) ANTHONY on CPAP Obesity (BMI 30-39.9) Surgical History (Updated 12/25/23 @ 10:32 by Jeannette Lucio MD) H/O knee surgery Family History Brother A-fib Brother A-fib Social History Housing: House Alcohol intake: current Alcohol intake frequency: a few times a week Patient Tobacco Use Status: Former Tobacco user Tobacco use type: Cigar Years Smoked: 30+/- (Cigarettes) e-Cigarette/Vaping Use: Never Used service: No Current occupational status: retired 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 1. Little interest or pleasure in doing things: not at all 2. Feeling down, depressed, or hopeless: not at all 3. Trouble falling or staying asleep, or sleeping too much: not at all 4. Feeling tired or having little energy: more than half the days 5. Poor appetite or overeating: not at all 6. Feeling bad about yourself - or that you are a failure or have let yourself or your family down: not at all 7. Trouble concentrating on things, such as reading the newspaper or watching television: not at all 8. Moving or speaking so slowly that other people could have noticed. Or the opposite - being so fidgety or restless that you have been moving around a lot more than usual: not at all 9. Thoughts that you would be better off or of hurting yourself in some way: not at all Total score: 2 Depression Screening Interpretation: Negative Depression Screening Done: Yes 20583 - PHQ-9 Billing: Yes Source: Developed by Drs. Marc Nathan, Tyra Ruth, Bhanu Gayle and colleagues, with an educational alex from [employer]. Thrive Questionnaire Date Thrive assessed: 08/10/23 I am a: Patient What is your living situation today?: I have a steady place to live Within the past 12 months, did the food you bought not last and you didn't have the money to get more?: Never true Within the past 12 months, did you worry whether your food would run out before you got money to buy more?: Never true Do you have trouble paying for medicines?: No Do you have trouble getting transportation to medical appointments?: No Do you have trouble paying your heating and electricity bill?: No Do you have trouble taking care of your child, family member or friend?: No Do you have trouble with day-to-day activities such as bathing, preparing meals, shopping, managing finances, etc.?: No Are you currently unemployed and looking for a job?: No Are you interested in more education?: No Please select the resources that you would like help with: None Currently or been in a relationship where the following occur: No concerns reported THRIVE Score: 0 AUDIT C Alcohol Use Questionnaire (AUDIT-C) 1. How often do you have a drink containing alcohol?: 2-3 times a week 2. How many drinks containing alcohol do you have on a typical day when you are drinking?: 1 or 2 3. How often do you have six or more drinks on one occasion?: Never Total Score: 3 ALLIE-7 AMB Questionnaire ALLIE-7 Date ALLIE - 7 assessed: 12/25/23 Feeling nervous, anxious, or on edge: 0 = Not at all Not being able to stop or control worryin = Nearly every day Worrying too much about different things: 2 = More than half the days Trouble relaxin = More than half the days Being so restless that it is hard to sit still: 2 = More than half the days Becoming easily annoyed or irritable: 2 = More than half the days Feeling afraid as if something awful might happen: 0 = Not at all Total ALLIE-7 score (0-4 normal; 5-9 mild; 10-14 moderate; 15-21 severe): 11 Source: Developed by Drs. Marc Nathan, Tyra Ruth, Bhanu Gayle and colleagues, with an educational alex from [employer]. Review of Systems Const All systems reviewed & are unremarkable except as noted in HPI and below Eyes Reports no additional complaints ENT Reports no additional complaints Card Reports no additional complaints Resp Reports no additional complaints Physical exam (Primary Care) Vital Signs: Last Vital Signs Pulse 60 12/25/23 09:00 BP 118/66 12/25/23 09:00 Pulse Ox 95 12/25/23 09:00 Oxygen Delivery Method Room Air 12/25/23 09:00 BMI result Body Mass Index 35.3 Tobacco/Smoking Status: Tobacco use Status Tobacco use date assessed 12/25/23 12/25/23 09:04 Patient Tobacco Use Status Former Tobacco user 12/25/23 09:04 Tobacco use type Cigar 12/25/23 09:04 e-Cigarette/Vaping Use Never Used 12/25/23 09:04 PHQ-9: PHQ-9 Score PHQ-9: Total score 2 12/25/23 09:04 Depression Screening Interpretation: Negative Thrive Assessment: Date of Thrive Assessment Date Thrive assessed 08/10/23 12/25/23 09:04 Currently or been in a relationship where the following occur: No concerns reported Const General: no acute distress HENMT Head: Yes normal to inspection Neck Neck: Yes supple Resp Effort & Inspection: normal respiratory effort Auscultation: clear to auscultation bilaterally Cardio Rhythm: regular rhythm Heart sounds: S1 normal heart sound present and S2 normal heart sound present Assessment and Plan Assessment & Plan (1) Hyperlipidemia: Code(s): E78.5 - Hyperlipidemia, unspecified Qualifiers: Hyperlipidemia type: unspecified Qualified Code(s): E78.5 - Hyperlipidemia, unspecified Plan: Continue atorvastatin , return for fasting lipid profile (2) Skin tag: Code(s): L91.8 - Other hypertrophic disorders of the skin Plan: Patient requested referral to document coordinator but we will find out who is covered under his insurance (3) COPD (chronic obstructive pulmonary disease): Comment: PER PULMONARY FUNCTION TEST HIS OBSTRUCTIVE AIRWAY DISORDER WAS MILD, HE DOES NOT NEED TO USE ANY MAINTENANCE BRONCHODILATOR THERAPY . DYSPNEA ON EXERTION IS DUE TO COMBINATION OF MILD COPD AND OBESITY, AND NOT BOTHERSOME AT THIS TIME. USE RESCUE INHALOR ( ALBUTEROL ) ONLY PRN . Code(s): J44.9 - Chronic obstructive pulmonary disease, unspecified Plan: Mild no need for inhaler (4) Anxiety: Code(s): F41.9 - Anxiety disorder, unspecified Plan: Stress management discussed with the patient. Increase exercise. He declined counseling and medication (5) Obesity (BMI 30-39.9): Code(s): E66.9 - Obesity, unspecified Plan: Increase physical activity decrease caloric intake and weight loss discussed with the patient return for physical in 1 year (6) Hx of colonoscopy: Comment: 2018, negative Code(s): Z98.890 - Other specified postprocedural states Orders: Orders Lipid Panel Today E78.5 - Hyperlipidemia, unspecified Comprehensive [place]. Panel Fast 8 Months E66.9 - Obesity, unspecified, E78.5 - Hyperlipidemia, unspecified Lipid Panel 8 Months E66.9 - Obesity, unspecified, E78.5 - Hyperlipidemia, unspecified UA w Microscopic 8 Months E66.9 - Obesity, unspecified, E78.5 - Hyperlipidemia, unspecified Complete Blood Count Auto Diff 8 Months E66.9 - Obesity, unspecified, E78.5 - Hyperlipidemia, unspecified PSA,Total (Free>4and<10) 8 Months E66.9 - Obesity, unspecified, E78.5 - Hyperlipidemia, unspecified Referrals Dermatology Referral L91.8 - Other hypertrophic disorders of the skin Medications: Refilled atorvastatin 40 mg PO DAILY 90 tabs 3RF Coding Level of Care Code Est Pt Level 4 (32158) Diagnoses Hyperlipidemia, unspecified hyperlipidemia type E78.5 Hyperlipidemia type: unspecified Skin tag L91.8 COPD (chronic obstructive pulmonary disease) J44.9 Anxiety F41.9 Obesity (BMI 30-39.9) E66.9 Hx of colonoscopy Z98.890
== END 2023-12-25 09:55 | disposition home or self-care (01) ==
PROVIDERS: PCP Nurse Practitioner Primary Care; Visit Provider Internal Medicine
DX: E78.5 Hyperlipidemia, unspecified (principal); J44.9 Chronic obstructive pulmonary disease, unspecified; E66.9 Obesity, unspecified; Z68.35 Body mass index [BMI] 35.0-35.9, adult; L91.8 Other hypertrophic disorders of the skin; F41.9 Anxiety disorder, unspecified; Z98.890 Other specified postprocedural states
CPT/HCPCS: 99214

== ENCOUNTER 2023-12-30 08:46 | Outpatient (AMB) | payer MEDICARE, SELFPAY ==
[2023-12-30 09:03] VITALS: BP 110/70; PULSE 64; BMI 35.4
--- NOTE | 2023-12-30 09:03 | A.OFFVIS_ITS ---
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 He said during the wintertime he had exertional shortness of breath as well as some chest discomfort. He was smoking cigars at that time. He was referred to pulmonology and was seen by Dr. Corbett. He is saying that he continues to have shortness of breath. He also gets shortness of breath if he bends down. He has gained weight and he has abdominal obesity. He has no chest discomfort. Physically he is active at work but does not exercise regularly. He was referred for stress echocardiogram. This was essentially normal. He was advised to lose some weight and to see if his breathing improves. He returns for follow-up today. He has lost 12 lb since his previous visit. He is saying by his home scale he has lost 20 lb. He is saying that he is feeling much better and able to do more and his shortness of breath is improving. 02/18/2023: He returns for follow-up. He is saying that he exercise and lost weight and felt better from dyspnea point of view. He is saying he has stopped losing weight despite trying and unable to lose further weight. His dietary habits are that he does not eat a breakfast, he eats saw small lunch and then he has a big dinner. I explained to him that he needs to reverse his eating pattern and eat smaller meals at dinnertime. Overall his dyspnea has improved significantly with weight loss and he is denying any other concerns right now. 08/28/23: He returns for f/u. He had COVID in jun and since then he has been more SOB. He has also gained 20 pounds which is probably causing some dyspnea too. No chest pain. 12/30/2023: He is here for follow-up. He has not lost any weight and he feels that his dyspnea is worsened before. Mostly when he is bending forward but also with activities he is getting out of breath. No chest discomfort. We discussed previously about his dyspnea that it could be due to weight gain but underlying coronary disease can not be ruled out. Our plan was that he will try to lose weight and see if symptoms improve. He previously lost weight and felt somewhat better but he has been in his steady weight at this stage and continues to get symptoms. We had a detailed discussion about further management plan and we have decided to pursue a [id number] heart catheterization. REPLACED BY [facility] Medical History (Updated 12/30/23 @ 12:35 by Toan Wright MD) Dyspnea on exertion Osteoarthritis of knee, unilateral COPD (chronic obstructive pulmonary disease) ANTHONY on CPAP Obesity (BMI 30-39.9) Surgical History H/O knee surgery Family History Brother A-fib Brother A-fib Social History Housing: House Alcohol intake: current Alcohol intake frequency: a few times a week Patient Tobacco Use Status: Former Tobacco user Tobacco use type: Cigar Years Smoked: 30+/- (Cigarettes) e-Cigarette/Vaping Use: Never Used service: No Current occupational status: retired 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 Current occupational exposures/hazards: Yes Cognitive needs: No Hearing needs: No Vision needs: No Review of Systems Const Denies chills, Denies fatigue, Denies fever(s), Denies frequent falls, Denies weakness, Denies weight gain and Denies weight loss ENT Denies dizziness Card Denies chest pain, Denies leg edema, Denies lightheadedness, Denies palpitations, Denies dyspnea and Denies dyspnea on exertion Resp Denies cough, Denies dyspnea and Denies dyspnea on exertion GI Denies hematochezia Musc Denies abnormal gait, Denies muscle weakness, Denies numbness, Denies radiating pain into limb and Denies tingling Neuro Denies abnormal gait, Denies dizziness, Denies frequent falls, Denies numbness, Denies tingling and Denies weakness Endo Denies fatigue and Denies palpitations Physical Exam Vital Signs: Last Vital Signs Pulse 64 12/30/23 09:03 BP 110/70 12/30/23 09:03 BMI result Body Mass Index 35.4 GENERAL APPEARANCE: in no acute distress, pleasant. NECK: no carotid bruit, no jugular venous distention. SKIN: no suspicious lesions, warm and dry. HEART: no murmurs, regular rate and rhythm. LUNGS: clear to auscultation bilaterally. ABDOMEN: soft, nontender. EXTREMITIES: no edema. PERIPHERAL PULSES: equal. NEUROLOGIC: No gross deficits, AAO X 3 Assessment & Plan Assessment & Plan (1) Dyspnea on exertion: Code(s): R06.00 - Dyspnea, unspecified Category: Medical Plan [age] year gentleman with mild COPD and obesity who has been following in our office for shortness of breath. He has history of normal ECG with septal Q- waves but normal echocardiography and previous stress testing. He feels that his shortness of breath is getting worse. It is possible that his dyspnea has linked with underlying mild COPD and obesity but given the fact that he has been unsteady weight and symptoms are worsening the possibility of underlying coronary disease can not be ruled out. I have discussed with him in detail that we have done the wait and see strategy for some time but maybe we should have some clear answers. He is agreeable and we will arrange a [id number] heart catheterization for him to further assess his dyspnea and rule out underlying coronary artery disease. Blood pressure control is good. No other issues currently. Thank you for allowing me to participate in the care of your patient. Please feel free to contact me if you have any questions. Orders: Orders Complete Blood Count no Diff Today R06.00 - Dyspnea, unspecified Cardiac Cath ELAINA Diagnostic Today R06.00 - Dyspnea, unspecified Basic Metabolic Panel Today R06.00 - Dyspnea, unspecified Prothrombin Time INR Today R06.00 - Dyspnea, unspecified Coding Level of Care Code Est Pt Level 4 (59940) Diagnoses Dyspnea on exertion R06.00
== END 2023-12-30 09:33 | disposition home or self-care (01) ==
PROVIDERS: PCP Nurse Practitioner Primary Care; Visit Provider Internal Medicine Cardiovascular Disease
DX: R06.00 Dyspnea, unspecified (principal)
CPT/HCPCS: 99214

== ENCOUNTER → 2023-12-30 08:46 | Outpatient (BNVA) | payer MEDICARE, SELFPAY | PROVIDERS: PCP Nurse Practitioner Primary Care; Visit Provider Internal Medicine Cardiovascular Disease | DX: R06.00 Dyspnea, unspecified (principal); E78.5 Hyperlipidemia, unspecified; Z87.891 Personal history of nicotine dependence | CPT/HCPCS: 99212 ==

== ENCOUNTER 2023-12-31 07:36 | Outpatient (REF) | payer MEDICARE, SELFPAY ==
[2023-12-31 10:04] LABS: Hematocrit 43.8 % (42.0-52.0); Hemoglobin 14.5 g/dl (14.0-18.0); Mean Corpuscular HGB Conc 33.1 g/dl (31.0-36.0); Mean Corpuscular Hemoglobin 30.5 pg (27.0-33.0); Mean Platelet Volume 10.5 fL (9.4-12.4); Platelet Count 199 X10*3/uL (160-400); Red Blood Count 4.76 X10*6/uL (4.60-5.80); White Blood Count 5.4 X10*3/uL (4.8-10.8)
[2023-12-31 10:08] LABS: INTERNATIONAL NORM RATIO 0.9 (0.9-1.1)
[2023-12-31 10:17] LABS: Anion Gap 12 (12-20); Blood Urea Nitrogen 19 mg/dL (9-16); Calcium 9.9 mg/dL (8.4-10.2); Carbon Dioxide 26 mmol/L (22-29); Chloride 105 mmol/L (96-108); Cholesterol 162 mg/dL (<200); Estimated Glomerular Filt Rate > 60; Glucose Random 112 mg/dL (60-115); HDL Cholesterol 48 mg/dL (>40); LDL Cholesterol Calculated 93 mg/dL (<100); Potassium 4.5 mmol/L (3.3-5.1); Sodium 138 mmol/L (135-145); Triglycerides 105 mg/dL (<150)
== END 2023-12-31 07:37 | disposition home or self-care (01) ==
LOC: HO.HMGCLDS 07:36
PROVIDERS: PCP Internal Medicine; Referring Provider Internal Medicine Cardiovascular Disease; Visit Provider Internal Medicine
DX: E78.5 Hyperlipidemia, unspecified (principal); R06.00 Dyspnea, unspecified
CPT/HCPCS: 36415; 80048; 80061; 85027; 85610

== ENCOUNTER → 2024-01-19 23:59 | Outpatient (BNV) | payer MEDICARE, SELFPAY | PROVIDERS: PCP Internal Medicine; Visit Provider Internal Medicine Cardiovascular Disease | DX: I50.30 Unspecified diastolic (congestive) heart failure (principal); R06.02 Shortness of breath | CPT/HCPCS: 93460; 99152 ==

== ENCOUNTER 2024-01-30 09:21 | Outpatient (AMB) | payer MEDICARE, SELFPAY ==
[2024-01-30 09:56] VITALS: BP 124/70; PULSE 70; TEMP 36.9; O2SAT 98; BMI 34.7
--- NOTE | 2024-01-30 09:56 | MHC.OFFWIV ---
Intake Vital Signs 01/30/24 09:56 Height 5 ft 9 in Weight 235 lb BMI 34.7 BP 124/70 Blood Pressure Location Rt brachial Position Sitting Pulse 70 Pulse Source Pulse Oximeter Temp 98.4 F Temp Source Oral Pulse Oximetry (%) 98 Oxygen Delivery Method Room Air Intake Visit Reasons: EP ?shingles Intake Note: Pt is here today c/o rash mid back and Lt arm pit x3 days ago Patient Tobacco Use Status: Former Tobacco user Allergies No Known Allergies [No Known Allergies*] Allergy (Verified 02/03/24 15:18) HPI EP ?shingles HPI Details Patient is a 68-year-old male with history of COPD, hyperlipidemia and a cardiac history, who complains of a few days of pain to his left armpit and left upper back area, along with a mild rash. No weakness, headaches, respiratory symptoms, numbness or tingling, fever or chills, dizziness or vertigo, nausea vomiting or diarrhea, myalgias or malaise, or other significant associated symptoms. 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 [employer] Current occupational exposures/hazards: Yes Cognitive needs: No Hearing needs: No Vision needs: No Review of Systems Const All systems reviewed & are unremarkable except as noted in HPI and below Physical Exam Vital Signs: Last Vital Signs Temp 98.4 F 01/30/24 09:56 Pulse 70 01/30/24 09:56 BP 124/70 01/30/24 09:56 Pulse Ox 98 01/30/24 09:56 Oxygen Delivery Method Room Air 01/30/24 09:56 BMI result Body Mass Index 34.7 Const General: cooperative, healthy appearing, comfortable, no acute distress, alert, awake, Physically active and well groomed; No anxious, diaphoretic, ill appearing, intoxicated appearing, poor hygiene or tired appearing Nutritional Appearance: average body habitus Limitations: no limitations Resp Effort & Inspection: normal respiratory effort, able to speak in complete sentences, no audible wheezes, no cough, no grunting, not labored, no nasal flaring, no retractions and symmetric chest movement Auscultation: clear to auscultation bilaterally, no crackles, no rales, no rhonchi, no wheezes, lung sounds not diminished and No rub present Cardio Rate: regular rate Skin Other: Mildly erythematous rash to the left upper back and left axillary area mildly extending to the left chest wall in a dermatome pattern. There are scattered vesicles with no current losing, or crusting. No edema or warmth. Mild tenderness to palpation to the area. No lesions or rash otherwise on the right of the spine. The rest of the skin is good color, warm and dry otherwise Psych Appearance: grossly normal Mental Status: mental status grossly normal Speech and movement: Normal speech and movement present Affect: normal affect Attitude: cooperative Thought process: Normal thought process present Insight: Good insight present (Psych) Judgement: Good judgement present (Psych) Assessment & Plan Assessment & Plan (1) Shingles outbreak: Code(s): B02.9 - Zoster without complications Qualifiers: Herpes zoster complications: without complications Qualified Code(s): B02.9 - Zoster without complications Plan: Patient is a 68-year-old male with history of COPD, hyperlipidemia and a cardiac history, who complains of a few days of pain to his left armpit and left upper back area, along with a mild rash that I believe is an acute shingles outbreak. He has no other symptoms, and denies weakness, headaches, respiratory symptoms, numbness or tingling, fever or chills, dizziness or vertigo, nausea vomiting or diarrhea, myalgias or malaise, or other significant associated symptoms. A write him for a course of antivirals, and he can take gabapentin as needed for the pain. I will start with a low dose as this is new for him, and he was advised not to drive or do anything safety sensitive while taking until he knows he is not affected by the medication. I told him that his rash could worsen before it starts to improve, and that he should keep it covered as he is contagious until they are all scabbed over. He knows to keep the area clean and dry also. He will follow up if symptoms change or worsen as needed, and he knows to go to the emergency department with worrisome symptoms. Medications: New valacyclovir 1,000 mg (2 x 500 mg) PO TID 42 tabs 0RF 7 days gabapentin can cause drowsiness. Do not drive while taking. Decreased dose slowly if taking more than a week 100 mg PO TID 60 caps 0RF Coding Level of Care Code Est Pt Level 4 (23505) Diagnoses Herpes zoster without complication B02.9 Herpes zoster complications: without complications
== END 2024-01-30 11:30 | disposition home or self-care (01) ==
PROVIDERS: PCP Internal Medicine; Visit Provider Physician Assistant Medical
DX: B02.9 Zoster without complications (principal)

== ENCOUNTER → 2024-01-30 09:21 | Outpatient (BNVA) | payer MEDICARE, SELFPAY | PROVIDERS: PCP Internal Medicine | DX: B02.9 Zoster without complications (principal); J44.9 Chronic obstructive pulmonary disease, unspecified; E78.5 Hyperlipidemia, unspecified; Z87.891 Personal history of nicotine dependence | CPT/HCPCS: 99212 ==

== ENCOUNTER 2024-02-01 08:30 | Outpatient (AMB) | payer MEDICARE, SELFPAY ==
--- NOTE | 2024-02-01 10:48 | AM.OFFWIN_ITS ---
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 He was diagnosed with shingles and given valacyclovir and gabapentin. He states he has been taking both medications as directed. He states the gabapentin is helping with the pain. He is here today just for a wound check to see if they look like they are healing appropriately. 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 Current occupational exposures/hazards: Yes Cognitive needs: No Hearing needs: No Vision needs: No Review of Systems Const All systems reviewed & are unremarkable except as noted in HPI and below Physical Exam Vital Signs: Last Vital Signs Pulse 62 02/01/24 10:49 BP 120/67 02/01/24 10:49 Pulse Ox 96 02/01/24 10:49 Oxygen Delivery Method Room Air 02/01/24 10:49 BMI result Body Mass Index 34.8 Const General: cooperative, healthy appearing, comfortable, no acute distress and well developed Orientation/consciousness: patient oriented x3 Limitations: no limitations Eyes General: appearance normal, both eyes and all related structures Resp Effort & Inspection: normal respiratory effort and able to speak in complete sentences Skin Other: large area under left axilla, left chest and scapula x cluster of vesicular lesions with an erythematous base in dermatome with some areas scabbed over, see photos Neuro General: patient oriented x3 Assessment & Plan Assessment & Plan (1) Shingles outbreak: Code(s): B02.9 - Zoster without complications Qualifiers: Herpes zoster complications: without complications Qualified Code(s): B 02.9 - Zoster without complications Plan: Rash seems to be scabbing over, some new vesicles present, advised patient he could take 2 gabapentin if he needed to as they are 100mg. Recommended he keep taking the medications as directed, seems to be heading in the healing direction Plan See above Coding Level of Care Code Est Pt Level 3 (90647) Diagnoses Herpes zoster without complication B02.9 Herpes zoster complications: without complications
[2024-02-01 10:49] VITALS: BP 120/67; PULSE 62; O2SAT 96; BMI 34.8
== END 2024-02-01 11:10 | disposition home or self-care (01) ==
PROVIDERS: PCP Internal Medicine; Visit Provider Physician Assistant
DX: B02.9 Zoster without complications (principal)

== ENCOUNTER → 2024-02-01 08:30 | Outpatient (BNVA) | payer MEDICARE, SELFPAY | PROVIDERS: PCP Internal Medicine | DX: B02.9 Zoster without complications (principal) | CPT/HCPCS: 99212 ==

== ENCOUNTER 2024-02-02 12:52 | Outpatient (AMB) | payer MEDICARE, SELFPAY ==
[2024-02-02 13:13] VITALS: BP 124/62; PULSE 59; BMI 34.0
--- NOTE | 2024-02-02 13:13 | MHC.OFFVIS ---
Vital Signs 02/02/24 13:13 Height 5 ft 9 in Weight 230 lb BMI 34.0 BP 124/62 Blood Pressure Location Lt brachial Position Sitting Pulse 59 Pulse Source Monitor Intake Visit Reasons: 2 wk s/p cath KM Allergies No Known Allergies [No Known Allergies*] Allergy (Verified 02/01/24 10:49) Medication List - Last Reconciled 02/02/24 by Trish German NP atorvastatin 40 mg PO DAILY cholecalciferol (vitamin D3) 50 mcg PO DAILY fish oil-dha-epa 1,200-144-216 mg caps PO gabapentin 100 mg PO TID valacyclovir 1,000 mg (2 x 500 mg) PO TID 7 days HPI Comments Details: 68-year-old male presents today for a follow-up after cardia catheretization. He reports he has been doing well since then. He currently has a shingles outbreak but other than that he feels fine. Right brachial artery is healing appropriately. He reports his breathing has slightly improved since he has lost some weight. He denies any swelling, chest pains, fever, chills, or orthopnea. He has not smoked since March 2023. He is seeing pulmonary soon. 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 Current occupational exposures/hazards: Yes Cognitive needs: No Hearing needs: No Vision needs: No Review of Systems Const Denies weakness ENT Denies dizziness Card Denies chest pain, Denies chest pain with activity, Denies syncope, Denies rapid heart rate, Denies pedal edema, Denies edema, Denies leg edema, Denies lightheadedness, Denies palpitations, Denies dyspnea, Denies dyspnea on exertion and Denies orthopnea Resp Denies cough, Denies dyspnea and Denies dyspnea on exertion GI Denies hematochezia and Denies change in stool character Musc Denies abnormal gait, Denies muscle cramps, Denies muscle weakness, Denies numbness, Denies radiating pain into limb and Denies tingling Neuro Denies abnormal gait, Denies dizziness, Denies syncope, Denies numbness, Denies tingling and Denies weakness Endo Denies palpitations Physical Exam Vital Signs: Last Vital Signs Pulse 59 02/02/24 13:13 BP 124/62 02/02/24 13:13 BMI result Body Mass Index 34.0 Const General: healthy appearing and no acute distress Orientation/consciousness: patient oriented x3 HEENT Head: Yes normal to inspection Eyes General: appearance normal, both eyes and all related structures Neck Neck: Yes normal visual inspection Chest Chest palpation & inspection: normal inspection of the chest Resp Effort & Inspection: normal respiratory effort Auscultation: clear to auscultation bilaterally Cardio Jugular venous distension: no JVD Palpation: normal PMI Rate: regular rate Rhythm: regular rhythm Heart sounds: S1 normal heart sound present, S2 normal heart sound present, no click, no gallops, no murmurs and no rubs GI Inspection: Yes normal to inspection Palpation (GI): Soft to palpation Skin General skin exam: no rashes or lesions noted Neuro General: patient oriented x3 Extrem General: Yes normal to inspection Psych Appearance: grossly normal Office Procedures EKG Details: EKG today. Sinus Bradycardia with 1st degree AV block. Rightward axis deviation. Ventricular rate: 59 bpm. NM interval 210ms. QRS 84 ms. QTc 394 ms. [id number], Complete Assessment & Plan Assessment & Plan (1) S/P cardiac catheterization: Comment: 01/19/[address] Wright. LMCA: Normal. LAD: Normal. LCx: Normal. RCA: Normal. Code(s): Z98.890 - Other specified postprocedural states Category: Surgical (2) Dyspnea on exertion: Code(s): R06.00 - Dyspnea, unspecified Category: Medical (3) Hyperlipidemia: Code(s): E78.5 - Hyperlipidemia, unspecified Category: Medical Qualifiers: Hyperlipidemia type: unspecified Qualified Code(s): E78.5 - Hyperlipidemia, unspecified Plan Cardiac catheterization with normal coronary arteries. Right brachial artery is healing appropriately. No swelling, tenderness, drainage, or erythema. Pulses present distal and proximal. Recommendations of aggressive risk factor modification. Patient has already quit smoking cigars. Heart healthy diet reviewed and he reports understanding. Patient has started to increase exercise and trying to lose weight. Weight loss he reports his helped his shortness of breath quite a bit. Strongly encouraged to continue. He is seeing Pulmonary tomorrow. LDL on 12/31/2023 was 93. Since then he has continued to improve his diet. He has a lipid panel that is due within the next few months with primary care. He is on atorvastatin 40 mg daily. Coding Level of Care Code Est Pt Level 3 (29630) Diagnoses S/P cardiac catheterization Z98.890 Dyspnea on exertion R06.00 Hyperlipidemia, unspecified hyperlipidemia type E78.5 Hyperlipidemia type: unspecified CPT Codes EKG - CPT: 90974-[id number], Complete ([id number])
== END 2024-02-02 13:47 | disposition home or self-care (01) ==
PROVIDERS: PCP Nurse Practitioner Primary Care; Visit Provider Nurse Practitioner
DX: I44.0 Atrioventricular block, first degree (principal)
CPT/HCPCS: 93010; 99213

== ENCOUNTER → 2024-02-02 12:52 | Outpatient (BNVA) | payer MEDICARE, SELFPAY | PROVIDERS: PCP Nurse Practitioner Primary Care; Visit Provider Nurse Practitioner | DX: R06.00 Dyspnea, unspecified (principal); E78.5 Hyperlipidemia, unspecified; Z87.891 Personal history of nicotine dependence; Z98.890 Other specified postprocedural states | CPT/HCPCS: 93005; 99212 ==

== ENCOUNTER 2024-02-03 14:44 | Outpatient (AMB) | payer MEDICARE, SELFPAY ==
[2024-02-03 15:03] VITALS: BP 142/80; PULSE 80; O2SAT 96; BMI 34.0
--- NOTE | 2024-02-03 15:03 | A.OFFVIS_ITS ---
Vital Signs 02/03/24 15:03 Height 5 ft 9 in Weight 230 lb 6.129 oz BMI 34.0 BP 142/80 H Blood Pressure Location Lt brachial Position Sitting Pulse 80 Pulse Source Pulse Oximeter Pulse Oximetry (%) 96 Oxygen Delivery Method Room Air Intake Visit Reasons: nery Intake Note: pt is here for follow up and states he using cpap fine, but shortness of breath with activity and also at times with sitting. 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 Allergies No Known Allergies [No Known Allergies*] Allergy (Verified 02/03/24 15:12) [facility] Medical History Dyspnea on exertion Osteoarthritis of knee, unilateral COPD (chronic obstructive pulmonary disease) NERY on CPAP Obesity (BMI 30-39.9) Surgical History S/P cardiac catheterization H/O knee surgery Family History Brother A-fib Brother A-fib Social History Housing: House Alcohol intake: current Alcohol intake frequency: a few times a week Patient Tobacco Use Status: Former Tobacco user Tobacco use type: Cigar Years Smoked: 30+/- (Cigarettes) e-Cigarette/Vaping Use: Never Used service: No Current occupational status: retired 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
--- NOTE | 2024-02-03 15:18 | A.OFFVIS_ITS ---
Vital Signs 02/03/24 15:03 Height 5 ft 9 in Weight 230 lb 6.129 oz BMI 34.0 BP 142/80 H Blood Pressure Location Lt brachial Position Sitting Pulse 80 Pulse Source Pulse Oximeter Pulse Oximetry (%) 96 Oxygen Delivery Method Room Air Intake Visit Reasons: anthony Allergies No Known Allergies [No Known Allergies*] Allergy (Verified 02/03/24 15:18) Medication List - Last Reconciled 02/03/24 by Kris Corbett MD atorvastatin 40 mg PO DAILY cholecalciferol (vitamin D3) 50 mcg PO DAILY fish oil-dha-epa 1,200-144-216 mg caps PO gabapentin 100 mg PO TID valacyclovir 1,000 mg (2 x 500 mg) PO TID 7 days Do you need a note to return to daycare/school/sports/work: No HPI HPI anthony: Details: GRANT IS 68 YEARS OLD GENTLEMAN GROSSLY OBESE, AND A CASE OF OBSTRUCTIVE SLEEP APNEA WHICH IS BEING TREATED WITH CPAP. HE USES CPAP EVERY NIGHT REGULARLY AND AT LEAST FOR 6-7 HOURS PER NIGHT. MISSES USING THE CPAP ONLY ABOUT ONCE OR TWICE A MONTH IF HE HAPPENS TO BE OUT TOWN. BREATHING SMYTH HE IS DOING OKAY. STILL GETS SHORT OF BREATH SOMETIME ON WALKING BUT SOON HE SITS DOWN IT IS BACK TO NORMAL. HE DOES NOT NEED TO USE THE BRONCHODILATOR INHALER . HE HAD RECENT CARDIAC EVALUATION WITH CARDIAC CATHETERIZATION AND WAS TOLD THAT EVERYTHING WAS FINE. AT PRESENT HE IS SUFFERING FROM HERPES ZOSTER ERUPTION ON THE LEFT CHEST WALL AND IN AXILLA. PAIN IS SOMEWHAT CONTROLLED WITH SMALL DOSE OF GABAPENTIN AND HE IS ALSO ON VALACYCLOVIR . HIS WEIGHT HAS REMAINED UNCHANGED. 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 Current occupational exposures/hazards: Yes Cognitive needs: No Hearing needs: No Vision needs: No Review of Systems Const All systems reviewed & are unremarkable except as noted in HPI and below Eyes Reports no additional complaints ENT Reports no additional complaints Card Denies chest pain, Denies irregular heart rhythm, Denies leg edema and Reports dyspnea on exertion (mild, on walking around , especially if going up hill.) Resp Denies cough, Reports dyspnea on exertion (mild, on walking around , especially if going up hill.) and Denies wheezing GI Reports no additional complaints Reports no additional complaints Musc Reports no additional complaints Skin/Breast Reports system reviewed and no additional complaints, except as documented Neuro Reports no additional complaints Psych Reports no additional complaints Aller/Immun Denies wheezing Physical Exam Vital Signs: Last Vital Signs Pulse 80 02/03/24 15:03 BP 142/80 H 02/03/24 15:03 Pulse Ox 96 02/03/24 15:03 Oxygen Delivery Method Room Air 02/03/24 15:03 BMI result Body Mass Index 34.0 Const General: healthy appearing (Except for being overweight), comfortable, no acute distress, alert and awake Orientation/consciousness: patient oriented x3 HEENT Head: Yes normal to inspection General nose exam: No nasal polyps present and No nasal discharge present Face and sinus: Yes sinuses nontender Mouth: oropharynx normal Throat: Yes posterior oropharynx normal (Space compromised, Mallampati class 3) Eyes General: appearance normal, both eyes and all related structures Neck Neck: Yes normal visual inspection, Yes no lymphadenopathy, Yes trachea midline and Yes no JVD Thyroid: Thyroid normal Chest Chest palpation & inspection: normal inspection of the chest, normal palpation of entire chest wall and no tenderness (HAS SHINGLES ERUPTION OVER THE LEFT UPPER CHEST WALL AND IS TENDER TO TOUCH) Resp Effort & Inspection: normal respiratory effort Auscultation: clear to auscultation bilaterally, no crackles and no wheezes Cardio Palpation: normal PMI Rate: regular rate Rhythm: regular rhythm Heart sounds: no gallops and no murmurs Peripheral pulses: Peripheral pulses 2+ throughout GI Palpation (GI): Soft to palpation, nontender, No hepatosplenomegaly present, no masses and Other GI palpation findings present (Abdomen is obese and protuberant) Auscultation: normal bowel sounds Back/Spine/Pelvis Thoracic/Lumbar Spine: thoracic and lumbar spine normal to inspection Skin General skin exam: no rashes or lesions noted Neuro General: patient oriented x3 and no focal motor deficits Cranial nerves: Yes CN's II-XII intact bilaterally Extrem General: Yes normal to inspection, Yes no clubbing, cyanosis or edema and Yes no calf tenderness Psych Appearance: grossly normal and well kempt Speech and movement: Normal speech and movement present Quality Reporting (2019) Adult ([facility] 138/06/25/68) Body Mass Index: 34.0 Results Reviewed Results Reviewed: COMPLIANCE REPORT FOR THE LAST 30 NIGHTS IS REVIEWED. HE HAS USED EVERY NIGHT EXCEPT FOR 2 NIGHTS IN THE MIDDLE OF THE MONTH WHEN HE WAS AWAY FROM THE HOUSE. USES MORE THAN 6 HOURS EVERY NIGHT THERE IS NOW SIGNIFICANT AIR LEAK. HE STILL HAS RESIDUAL AHI OF 6.1. Assessment & Plan Assessment & Plan (1) Obesity (BMI 30-39.9): Code(s): E66.9 - Obesity, unspecified Category: Medical (2) ANTHONY on CPAP: Comment: OBSTRUCTIVE SLEEP APNEA, PATIENT ON CPAP, AND IS VERY COMPLIANT, SLEEPS AT LEAST 6 HOURS WITH THE CPAP ON EVERY NIGHT. Code(s): G47.33 - Obstructive sleep apnea (adult) (pediatric); Z99.89 - Dependence on other enabling machines and devices Category: Medical Plan: COMMENDED FOR GOOD COMPLIANCE AND ADVISED TO KEEP ON USING CPAP EVERY NIGHT. (3) COPD (chronic obstructive pulmonary disease): Comment: PER PULMONARY FUNCTION TEST HIS OBSTRUCTIVE AIRWAY DISORDER WAS MILD, HE DOES NOT NEED TO USE ANY MAINTENANCE BRONCHODILATOR THERAPY . DYSPNEA ON EXERTION IS DUE TO COMBINATION OF MILD COPD AND OBESITY . USE RESCUE INHALOR ( ALBUTEROL ) ONLY PRN . Code(s): J44.9 - Chronic obstructive pulmonary disease, unspecified Category: Medical Plan: KEEP ALBUTEROL INHALER ON HAND AND USE ONLY IF THERE IS ANY ATTACK OF COUGH OR WHEEZING (4) Shingles outbreak: Comment: PATIENT HAS ACUTE HERPES ZOSTER ERUPTION ON THE LEFT CHEST WALL. Code(s): B02.9 - Zoster without complications Category: Medical Qualifiers: Herpes zoster complications: without complications Qualified Code(s): B02.9 - Zoster without complications Plan: HE IS BEING TREATED WITH THE VALCYCLOVIR , AND GABAPENTIN. Plan CONTINUE THE ABOVE TREATMENT. Coding Level of Care Code Est Pt Level 3 (84242) Diagnoses Obesity (BMI 30-39.9) E66.9 ANTHONY on CPAP G47.33; Z99.89 COPD (chronic obstructive pulmonary disease) J44.9 Herpes zoster without complication B02.9 Herpes zoster complications: without complications
[2024-02-03 15:36] VITALS: BMI 34.0
== END 2024-02-03 15:27 | disposition home or self-care (01) ==
PROVIDERS: PCP Internal Medicine; Visit Provider Internal Medicine
DX: E66.9 Obesity, unspecified (principal); G47.33 Obstructive sleep apnea (adult) (pediatric); Z99.89 Dependence on other enabling machines and devices; J44.9 Chronic obstructive pulmonary disease, unspecified; B02.9 Zoster without complications
CPT/HCPCS: 99213

== ENCOUNTER → 2024-02-03 14:44 | Outpatient (BNVA) | payer MEDICARE, SELFPAY | PROVIDERS: PCP Internal Medicine; Visit Provider Internal Medicine | DX: G47.33 Obstructive sleep apnea (adult) (pediatric) (principal); J44.9 Chronic obstructive pulmonary disease, unspecified; B02.9 Zoster without complications; E66.9 Obesity, unspecified; Z99.89 Dependence on other enabling machines and devices; Z68.34 Body mass index [BMI] 34.0-34.9, adult | CPT/HCPCS: 99212 ==

== ENCOUNTER 2024-07-21 09:58 | Outpatient (AMB) | payer MEDICARE, SELFPAY ==
[2024-07-21 10:30] VITALS: BP 108/60; PULSE 61; O2SAT 95; BMI 35.5
--- NOTE | 2024-07-21 10:30 | MHC.OFFVIS ---
Vital Signs 07/21/24 10:30 Height 5 ft 9 in Weight 240 lb 4.862 oz BMI 35.5 BP 108/60 Blood Pressure Location Lt brachial Position Sitting Pulse 61 Pulse Source Pulse Oximeter Pulse Oximetry (%) 95 Oxygen Delivery Method Room Air Intake Visit Reasons: nery Intake Note: pt is here for follow up and states he has not been sleeping well, the machine seems to be working, the other night it shut off, but regional is texting stating more breathing interruptions, and he sometimes he is having shortness of breath at times with exertion, and sometimes it happens when sitting and watching TV, and in the night with cpap, he wakes up he cannot breath Sales Operations Director Required: No Allergies No Known Allergies [No Known Allergies*] Allergy (Verified 07/21/24 10:55) Medication List - Last Reconciled 07/21/24 by Kris Corbett MD atorvastatin 40 mg PO DAILY cholecalciferol (vitamin D3) 50 mcg PO DAILY fish oil-dha-epa 1,200-144-216 mg caps PO gabapentin 100 mg PO TID valacyclovir 1,000 mg (2 x 500 mg) PO TID 7 days HPI HPI nery: Details: This 68 years old gentleman grossly obese with obstructive sleep apnea, comes after 6 months for his routine follow-up. He uses CPAP every night. However he feels that he is not getting enough pressure. He gets calls from the [facility] that his residual AHI number is high He uses for 6 hours 15 minutes, but wakes up somewhat un-refreshed . He has gained some weight, and is not very active physically. Complains that he gets short of breath on exertion and even at rest. He has albuterol HFA on hand but hardly uses it, he thinks it isn't do much good. 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 Current occupational exposures/hazards: Yes Cognitive needs: No Hearing needs: No Vision needs: No Review of Systems Const All systems reviewed & are unremarkable except as noted in HPI and below Eyes Reports no additional complaints ENT Reports no additional complaints Card Denies chest pain, Denies irregular heart rhythm, Denies leg edema and Reports dyspnea on exertion (mild, on walking around , especially if going up hill.) Resp Denies cough, Reports dyspnea on exertion (mild, on walking around , especially if going up hill.) and Denies wheezing GI Reports no additional complaints Reports no additional complaints Musc Reports no additional complaints Skin/Breast Reports system reviewed and no additional complaints, except as documented Neuro Reports no additional complaints Psych Reports no additional complaints Aller/Immun Denies wheezing Physical Exam Vital Signs: Last Vital Signs Pulse 61 07/21/24 10:30 BP 108/60 07/21/24 10:30 Pulse Ox 95 07/21/24 10:30 Oxygen Delivery Method Room Air 07/21/24 10:30 BMI result Body Mass Index 35.5 Const General: healthy appearing (Except for being overweight), comfortable, no acute distress, alert and awake Orientation/consciousness: patient oriented x3 HEENT Head: Yes normal to inspection General nose exam: No nasal polyps present and No nasal discharge present Face and sinus: Yes sinuses nontender Mouth: oropharynx normal Throat: Yes posterior oropharynx normal (Space compromised, Mallampati class 3) Eyes General: appearance normal, both eyes and all related structures Neck Neck: Yes normal visual inspection, Yes no lymphadenopathy, Yes trachea midline and Yes no JVD Thyroid: Thyroid normal Chest Chest palpation & inspection: normal inspection of the chest, normal palpation of entire chest wall and no tenderness Resp Effort & Inspection: normal respiratory effort Auscultation: clear to auscultation bilaterally, no crackles and no wheezes Cardio Palpation: normal PMI Rate: regular rate Rhythm: regular rhythm Heart sounds: no gallops and no murmurs Peripheral pulses: Peripheral pulses 2+ throughout GI Palpation (GI): Soft to palpation, nontender, No hepatosplenomegaly present, no masses and Other GI palpation findings present (Abdomen is obese and protuberant) Auscultation: normal bowel sounds Back/Spine/Pelvis Thoracic/Lumbar Spine: thoracic and lumbar spine normal to inspection Skin General skin exam: no rashes or lesions noted Neuro General: patient oriented x3 and no focal motor deficits Cranial nerves: Yes CN's II-XII intact bilaterally Extrem General: Yes normal to inspection, Yes no clubbing, cyanosis or edema and Yes no calf tenderness Psych Appearance: grossly normal and well kempt Speech and movement: Normal speech and movement present Office Procedures Spirometry Testing Spirometry Comments: In office spirometry completed with results given to Dr Corbett. 21230- Spirometry Results Reviewed Results Reviewed: Compliance report for the last 30 nights is reviewed and he has used it 100% of the nights. Average use it per night 6 hours 9 minutes. He is on auto PAP mode and pressure used is mostly 16-18 cm. There is mild air leak maximum 58 L per minute. Residual AHI 7.0 SPIROMETRY : 10/19/202007/21.25 FVC 87 % 85 % FEV1 77 % 74 % FEF 25-75 50 % 48 % c/w mild obstructive disorder Assessment & Plan Assessment & Plan (1) NERY on CPAP: Comment: OBSTRUCTIVE SLEEP APNEA, PATIENT ON CPAP, AND IS VERY COMPLIANT, SLEEPS AT LEAST 6 HOURS WITH THE CPAP ON EVERY NIGHT. Code(s): G47.33 - Obstructive sleep apnea (adult) (pediatric); Z99.89 - Dependence on other enabling machines and devices Category: Medical Plan: Advised to continue using the CPAP every night regularly (2) COPD (chronic obstructive pulmonary disease): Comment: PER PULMONARY FUNCTION TEST HIS OBSTRUCTIVE AIRWAY DISORDER WAS MILD, Spirometry today also shows a mild obstructive airway disorder. HE DOES NOT NEED TO USE ANY MAINTENANCE BRONCHODILATOR THERAPY . DYSPNEA ON EXERTION IS DUE TO COMBINATION OF MILD COPD AND OBESITY . USE RESCUE INHALOR ( ALBUTEROL ) ONLY PRN . Code(s): J44.9 - Chronic obstructive pulmonary disease, unspecified Category: Medical Plan: Albuterol HFA 2 puffs Q 6 hours p.r.n. (3) Dyspnea on exertion: Comment: Dyspnea on exertion which is slightly more than before is due to combination of mild obstructive disorder, gross obesity, and deconditioning. Code(s): R06.00 - Dyspnea, unspecified Category: Medical Plan: Advised to controlled diet and lose weight and also advised to do breathing exercises. May use albuterol 2 puffs Q 6 hours p.r.n. Orders: Orders AMB Spirometry Testing Today J44.9 - Chronic obstructive pulmonary disease, unspecified Coding Level of Care Code Est Pt Level 4 (93898) Diagnoses NERY on CPAP G47.33; Z99.89 COPD (chronic obstructive pulmonary disease) J44.9 Dyspnea on exertion R06.00 CPT Codes Spirometry - CPT: 35640- Spirometry ([id number])
== END 2024-07-21 11:21 | disposition home or self-care (01) ==
LOC: HO.HPS 09:59
PROVIDERS: PCP Internal Medicine; Visit Provider Internal Medicine
DX: G47.33 Obstructive sleep apnea (adult) (pediatric) (principal); Z99.89 Dependence on other enabling machines and devices; J44.9 Chronic obstructive pulmonary disease, unspecified; R06.00 Dyspnea, unspecified
CPT/HCPCS: 94010; 99214

== ENCOUNTER → 2024-07-21 09:58 | Outpatient (BNVA) | payer MEDICARE, SELFPAY | PROVIDERS: PCP Internal Medicine; Visit Provider Internal Medicine | DX: G47.33 Obstructive sleep apnea (adult) (pediatric) (principal); E66.09 Other obesity due to excess calories; J44.9 Chronic obstructive pulmonary disease, unspecified; R06.00 Dyspnea, unspecified; Z99.89 Dependence on other enabling machines and devices; Z68.35 Body mass index [BMI] 35.0-35.9, adult | CPT/HCPCS: 94010; 99212 ==

== ENCOUNTER 2024-08-11 07:51 | Outpatient (AMB) | payer MEDICARE, SELFPAY ==
[2024-08-11 08:12] VITALS: BP 128/78; PULSE 67; RESP 18; TEMP 36.7; O2SAT 96; BMI 35.4
--- NOTE | 2024-08-11 08:12 | A.OFFPC_ITS ---
Vital Signs 08/11/24 08:12 Height 5 ft 9 in Weight 240 lb BMI 35.4 BP 128/78 Blood Pressure Location Lt brachial Position Sitting Respiration 18 Pulse 67 Pulse Source Pulse Oximeter Temp 98.0 F Temp Source Oral Pulse Oximetry (%) 96 Oxygen Delivery Method Room Air Intake Visit Reasons: Annual Intake Note: Pt is here today for PE. Allergies No Known Allergies [No Known Allergies*] Allergy (Verified 08/11/24 09:59) Tobacco use date assessed: 08/11/24 Fall risk assessment: No Falls in past year Last assessed Fall Risk: 08/11/24 Dental Screening Dental Screen Date: 08/11/24 Did you have a dental visit in the last 12 months?: Yes Did you have a dental problem in the last 6 months where you did not have access to dental care?: No Was dental information given to patient?: Patient has dentist HPI Annual HPI Details Patient presents for physical. [facility] Medical History (Updated 08/11/24 @ 21:12 by Jeannette Lucio MD) Dyspnea on exertion Osteoarthritis of knee, unilateral COPD (chronic obstructive pulmonary disease) ANTHONY on CPAP Obesity (BMI 30-39.9) Surgical History (Updated 08/11/24 @ 21:12 by Jeannette Lucio MD) S/P cardiac catheterization H/O knee surgery Family History Brother A-fib Brother A-fib Social History Housing: House Alcohol intake: current Alcohol intake frequency: a few times a week Patient Tobacco Use Status: Former Tobacco user Tobacco use type: Cigar Years Smoked: 30+/- (Cigarettes) e-Cigarette/Vaping Use: Never Used service: No Current occupational status: retired 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 1. Little interest or pleasure in doing things: not at all 2. Feeling down, depressed, or hopeless: not at all 3. Trouble falling or staying asleep, or sleeping too much: not at all 4. Feeling tired or having little energy: not at all 5. Poor appetite or overeating: not at all 6. Feeling bad about yourself - or that you are a failure or have let yourself or your family down: not at all 7. Trouble concentrating on things, such as reading the newspaper or watching television: not at all 8. Moving or speaking so slowly that other people could have noticed. Or the opposite - being so fidgety or restless that you have been moving around a lot more than usual: not at all 9. Thoughts that you would be better off or of hurting yourself in some way: not at all Total score: 0 Depression Screening Interpretation: Negative Depression Screening Done: Yes 07768 - PHQ-9 Billing: Yes Source: Developed by Drs. Marc Nathan, Tyra Ruth, Bhanu Gayle and colleagues, with an educational alex from [employer]. Thrive Questionnaire Date Thrive assessed: 08/11/24 I am a: Patient What is your living situation today?: I have a steady place to live Within the past 12 months, did the food you bought not last and you didn't have the money to get more?: Often true Within the past 12 months, did you worry whether your food would run out before you got money to buy more?: Never true Do you have trouble paying for medicines?: No Do you have trouble getting transportation to medical appointments?: No Do you have trouble paying your heating and electricity bill?: No Do you have trouble taking care of your child, family member or friend?: No Do you have trouble with day-to-day activities such as bathing, preparing meals, shopping, managing finances, etc.?: No Are you currently unemployed and looking for a job?: No Are you interested in more education?: No Please select the resources that you would like help with: None Currently or been in a relationship where the following occur: No concerns reported THRIVE Score: 1 AUDIT C Alcohol Use Questionnaire (AUDIT-C) 1. How often do you have a drink containing alcohol?: Monthly or less 2. How many drinks containing alcohol do you have on a typical day when you are drinking?: 1 or 2 3. How often do you have six or more drinks on one occasion?: Never Total Score: 1 ALLIE-7 AMB Questionnaire ALLIE-7 Date ALLIE - 7 assessed: 08/11/24 Feeling nervous, anxious, or on edge: 0 = Not at all Not being able to stop or control worryin = Not at all Worrying too much about different things: 3 = Nearly every day Trouble relaxin = Several days Being so restless that it is hard to sit still: 1 = Several days Becoming easily annoyed or irritable: 1 = Several days Feeling afraid as if something awful might happen: 0 = Not at all Total ALLIE-7 score (0-4 normal; 5-9 mild; 10-14 moderate; 15-21 severe): 6 Source: Developed by Drs. Marc Nathan, Tyra Ruth, Bhanu Gayle and colleagues, with an educational alex from [employer]. ALLIE-7 Assessment Billing ALLIE-7 Assessment Tool: ALLIE-7 Assessment 91242 Review of Systems Const All systems reviewed & are unremarkable except as noted in HPI and below Eyes Reports no additional complaints ENT Reports no additional complaints Card Reports no additional complaints Resp Reports no additional complaints GI Reports no additional complaints Reports no additional complaints Physical exam (Primary Care) Vital Signs: Last Vital Signs Temp 98.0 F 08/11/24 08:12 Pulse 67 08/11/24 08:12 Resp 18 08/11/24 08:12 BP 128/78 08/11/24 08:12 Pulse Ox 96 08/11/24 08:12 Oxygen Delivery Method Room Air 08/11/24 08:12 BMI result Body Mass Index 35.4 Tobacco/Smoking Status: Tobacco use Status Tobacco use date assessed 08/11/24 08/11/24 08:18 Patient Tobacco Use Status Former Tobacco user 08/11/24 08:18 Tobacco use type Cigar 08/11/24 08:18 e-Cigarette/Vaping Use Never Used 08/11/24 08:18 PHQ-9: PHQ-9 Score PHQ-9: Total score 0 08/11/24 08:39 Depression Screening Interpretation: Negative Thrive Assessment: Date of Thrive Assessment Date Thrive assessed 08/11/24 08/11/24 08:18 Currently or been in a relationship where the following occur: No concerns reported Const General: no acute distress HENMT Head: Yes normal to inspection Ears: hearing grossly normal bilaterally Face and sinus: Yes normal facial exam Throat: Yes posterior oropharynx normal Eyes General: appearance normal, both eyes and all related structures Neck Neck: Yes no lymphadenopathy and Yes supple Resp Effort & Inspection: normal respiratory effort Auscultation: clear to auscultation bilaterally Cardio Rhythm: regular rhythm Heart sounds: S1 normal heart sound present and S2 normal heart sound present GI Inspection: Yes normal to inspection Palpation (GI): Soft to palpation Percussion: Yes normal to percussion Auscultation: normal bowel sounds Coding Level of Care Code Est Pt Prev Care >65y(50818) Diagnoses COPD (chronic obstructive pulmonary disease) J44.9 ANTHONY on CPAP G47.33; Z99.89 Obesity (BMI 30-39.9) E66.9 Hyperlipidemia, unspecified hyperlipidemia type E78.5 Hyperlipidemia type: unspecified Annual physical exam Z00.00 Additional Codes ALLIE-7 Assessment Billing - ALLIE-7 Assessment Tool: ALLIE-7 Assessment 78538 ([id number]) PHQ-9 - 05720 - PHQ-9 Billing: Yes ([id number]) Assessment & Plan Assessment & Plan (1) COPD (chronic obstructive pulmonary disease): Comment: PER PULMONARY FUNCTION TEST HIS OBSTRUCTIVE AIRWAY DISORDER WAS MILD, Spirometry today also shows a mild obstructive airway disorder. HE DOES NOT NEED TO USE ANY MAINTENANCE BRONCHODILATOR THERAPY . DYSPNEA ON EXERTION IS DUE TO COMBINATION OF MILD COPD AND OBESITY . USE RESCUE INHALOR ( ALBUTEROL ) ONLY PRN . Code(s): J44.9 - Chronic obstructive pulmonary disease, unspecified Category: Medical Plan: Continue albuterol PRN follow-up with pulmonology (2) ANTHONY on CPAP: Comment: OBSTRUCTIVE SLEEP APNEA, PATIENT ON CPAP, AND IS VERY COMPLIANT, SLEEPS AT LEAST 6 HOURS WITH THE CPAP ON EVERY NIGHT. HAS NO ISSUES WITH THE MASK OR CPAP DEVICE. Code(s): G47.33 - Obstructive sleep apnea (adult) (pediatric); Z99.89 - Dependence on other enabling machines and devices Category: Medical Plan: Continue Cpap (3) Obesity (BMI 30-39.9): Code(s): E66.9 - Obesity, unspecified Category: Medical Plan: Decreasing caloric intake increasing physical activity weight loss discussed with the patient (4) Hyperlipidemia: Code(s): E78.5 - Hyperlipidemia, unspecified Category: Medical Qualifiers: Hyperlipidemia type: unspecified Qualified Code(s): E78.5 - Hyperlipidemia, unspecified Plan: Continue atorvastatin (5) Annual physical exam: Comment: Patient had negative colonoscopy in 2018 Code(s): Z00.00 - Encounter for general adult medical examination without abnormal findings Category: Medical Plan: Well-balanced diet regular exercise weight loss discussed with the patient
== END 2024-08-11 08:45 | disposition home or self-care (01) ==
LOC: HO.HMCC 07:52
PROVIDERS: PCP Internal Medicine; Visit Provider Internal Medicine
DX: Z00.00 Encounter for general adult medical examination without abnormal findings (principal); J44.9 Chronic obstructive pulmonary disease, unspecified; E66.9 Obesity, unspecified; Z68.35 Body mass index [BMI] 35.0-35.9, adult; G47.33 Obstructive sleep apnea (adult) (pediatric); Z99.89 Dependence on other enabling machines and devices; E78.5 Hyperlipidemia, unspecified

== ENCOUNTER → 2024-08-11 07:51 | Outpatient (BNVA) | payer MEDICARE, SELFPAY | PROVIDERS: PCP Internal Medicine; Visit Provider Internal Medicine | DX: Z00.00 Encounter for general adult medical examination without abnormal findings (principal); E66.9 Obesity, unspecified; G47.33 Obstructive sleep apnea (adult) (pediatric); J44.9 Chronic obstructive pulmonary disease, unspecified; E78.5 Hyperlipidemia, unspecified; Z87.891 Personal history of nicotine dependence; Z99.89 Dependence on other enabling machines and devices; Z79.899 Other long term (current) drug therapy | CPT/HCPCS: 96127; 99212; 99397 ==

== ENCOUNTER 2024-08-11 09:06 | Outpatient (AMB) | payer MEDICARE, SELFPAY ==
[2024-08-11 09:20] VITALS: BP 120/74; PULSE 64; O2SAT 98; BMI 35.5
--- NOTE | 2024-08-11 09:20 | MHC.OFFVIS ---
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 Comes today after 6 months . He uses CPAP very regularly, every night,. And sleeps well He has mild degree of COPD and uses albuterol only p.r.n. especially if he does some work outdoors. Weight bush there has been no progress. His PCP is considering to start him on anti obesity med. He discussed with me and I told him it will be okay. 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 Current occupational exposures/hazards: Yes Cognitive needs: No Hearing needs: No Vision needs: No Review of Systems Const All systems reviewed & are unremarkable except as noted in HPI and below Eyes Reports no additional complaints ENT Reports no additional complaints Card Denies chest pain, Denies irregular heart rhythm, Denies leg edema and Reports dyspnea on exertion (mild, on walking around , especially if going up hill.) Resp Denies cough, Reports dyspnea on exertion (mild, on walking around , especially if going up hill.) and Denies wheezing GI Reports no additional complaints Reports no additional complaints Musc Reports no additional complaints Skin/Breast Reports system reviewed and no additional complaints, except as documented Neuro Reports no additional complaints Psych Reports no additional complaints Aller/Immun Denies wheezing Physical Exam Vital Signs: Last Vital Signs Pulse 64 08/11/24 09:20 BP 120/74 08/11/24 09:20 Pulse Ox 98 08/11/24 09:20 Oxygen Delivery Method Room Air 08/11/24 09:20 BMI result Body Mass Index 35.5 Const General: healthy appearing (Except for being overweight), comfortable, no acute distress, alert and awake Orientation/consciousness: patient oriented x3 HEENT Head: Yes normal to inspection General nose exam: No nasal polyps present and No nasal discharge present Face and sinus: Yes sinuses nontender Mouth: oropharynx normal Throat: Yes posterior oropharynx normal (Space compromised, Mallampati class 3) Eyes General: appearance normal, both eyes and all related structures Neck Neck: Yes normal visual inspection, Yes no lymphadenopathy, Yes trachea midline and Yes no JVD Thyroid: Thyroid normal Chest Chest palpation & inspection: normal inspection of the chest, normal palpation of entire chest wall and no tenderness Resp Effort & Inspection: normal respiratory effort Auscultation: clear to auscultation bilaterally, no crackles and no wheezes Cardio Palpation: normal PMI Rate: regular rate Rhythm: regular rhythm Heart sounds: no gallops and no murmurs Peripheral pulses: Peripheral pulses 2+ throughout GI Palpation (GI): Soft to palpation, nontender, No hepatosplenomegaly present, no masses and Other GI palpation findings present (Abdomen is obese and protuberant) Auscultation: normal bowel sounds Back/Spine/Pelvis Thoracic/Lumbar Spine: thoracic and lumbar spine normal to inspection Skin General skin exam: no rashes or lesions noted Neuro General: patient oriented x3 and no focal motor deficits Cranial nerves: Yes CN's II-XII intact bilaterally Extrem General: Yes normal to inspection, Yes no clubbing, cyanosis or edema and Yes no calf tenderness Psych Appearance: grossly normal and well kempt Speech and movement: Normal speech and movement present Results Reviewed Results Reviewed: Compliance report is reviewed he used 20/21 nights, 95%. Average use it per night 6 hours 9 minutes. .Pressure 17 cm There is mild air leak issue, according to him it depends upon the trimming of his beer. Residual AHI only 2.0 Assessment & Plan Assessment & Plan (1) NERY on CPAP: Comment: OBSTRUCTIVE SLEEP APNEA, PATIENT ON CPAP, AND IS VERY COMPLIANT, SLEEPS AT LEAST 6 HOURS WITH THE CPAP ON EVERY NIGHT. HAS NO ISSUES WITH THE MASK OR CPAP DEVICE. Code(s): G47.33 - Obstructive sleep apnea (adult) (pediatric); Z99.89 - Dependence on other enabling machines and devices Category: Medical Plan: Commended for good compliance and advised to continue using CPAP every night for more than 6 hours per night. (2) COPD (chronic obstructive pulmonary disease): Comment: PER PULMONARY FUNCTION TEST HIS OBSTRUCTIVE AIRWAY DISORDER WAS MILD, Spirometry today also shows a mild obstructive airway disorder. HE DOES NOT NEED TO USE ANY MAINTENANCE BRONCHODILATOR THERAPY . DYSPNEA ON EXERTION IS DUE TO COMBINATION OF MILD COPD AND OBESITY . USE RESCUE INHALOR ( ALBUTEROL ) ONLY PRN . Code(s): J44.9 - Chronic obstructive pulmonary disease, unspecified Category: Medical Plan: OK to use albuterol 2 puffs Q 6 hours p.r.n.. Coding Level of Care Code Est Pt Level 3 (90322) Diagnoses NERY on CPAP G47.33; Z99.89 COPD (chronic obstructive pulmonary disease) J44.9
== END 2024-08-11 10:00 | disposition home or self-care (01) ==
LOC: HO.HPS 09:07
PROVIDERS: PCP Internal Medicine; Visit Provider Internal Medicine
DX: G47.33 Obstructive sleep apnea (adult) (pediatric) (principal); Z99.89 Dependence on other enabling machines and devices; J44.9 Chronic obstructive pulmonary disease, unspecified
CPT/HCPCS: 99213

== ENCOUNTER 2024-08-15 12:49 | Outpatient (AMB) | payer MEDICARE, SELFPAY ==
[2024-08-15 12:58] VITALS: BP 114/62; PULSE 67; BMI 35.3
--- NOTE | 2024-08-15 12:58 | MHC.OFFVIS ---
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 Today he reports that he continues to have some issues with shortness of breath with exertion. He says his medications for COPD help. He has no PND, orthopnea or edema. No chest discomfort at rest or with activity. No heart palpitations, lightheadedness, presyncope, syncope. He tries to remain physically active. Compliant with medications. Follows with Dr. Corbett for pulmonology. 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 Current occupational exposures/hazards: Yes Cognitive needs: No Hearing needs: No Vision needs: No Review of Systems Const All systems reviewed & are unremarkable except as noted in HPI and below Card Denies chest pain, Denies chest pain at rest, Denies chest pain with activity, Denies rapid heart rate, Denies leg edema, Reports dyspnea, Reports dyspnea on exertion and Denies orthopnea Resp Reports dyspnea and Reports dyspnea on exertion GI Denies no additional complaints Denies no additional complaints Musc Denies no additional complaints Physical Exam Vital Signs: Last Vital Signs Pulse 67 08/15/24 12:58 BP 114/62 08/15/24 12:58 BMI result Body Mass Index 35.3 Const General: cooperative, healthy appearing, comfortable and no acute distress Orientation/consciousness: patient oriented x3 Neck Neck: Yes normal visual inspection and Yes no JVD Carotids: normal carotid upstroke Resp Effort & Inspection: normal respiratory effort Auscultation: clear to auscultation bilaterally, no rales, no rhonchi and no wheezes Cardio Rate: regular rate Rhythm: regular rhythm Heart sounds: S1 normal heart sound present, S2 normal heart sound present, no murmurs and no rubs Neuro General: patient oriented x3 Extrem General: Yes normal to inspection, No no pedal edema and No calf tenderness Psych Appearance: grossly normal Mental Status: mental status grossly normal Speech and movement: Normal speech and movement present Assessment & Plan Assessment & Plan (1) Dyspnea on exertion: Code(s): R06.00 - Dyspnea, unspecified Category: Medical Plan: Prior cardiac evaluation for shortness of breath with exertion did not reveal cardiac cause. A prior stress echocardiogram done 10/29/2020 showed no echo or EKG evidence of ischemia. At that time he had normal EF and wall motion. He underwent cardiac catheterization on 01/19/2024 showing normal coronary arteries. He has a history of smoking, obesity, sleep apnea with CPAP use. He now follows with Dr. Corbett for pulmonology and reports that his breathing is stable. Discussed benefits of weight loss, increasing physical activity as able. Cardiology follow-up p.r.n.. (2) S/P cardiac catheterization: Comment: 01/19/[address] [place]. LMCA: Normal. LAD: Normal. LCx: Normal. RCA: Normal. Code(s): Z98.890 - Other specified postprocedural states Category: Surgical Plan: As above (3) Hyperlipidemia: Code(s): E78.5 - Hyperlipidemia, unspecified Category: Medical Qualifiers: Hyperlipidemia type: unspecified Qualified Code(s): E78.5 - Hyperlipidemia, unspecified Plan: [place] LDL goal less than 100. Labs done 12/31/2023 showed LDL 93. Continue atorvastatin. (4) ANTHONY on CPAP: Code(s): G47.33 - Obstructive sleep apnea (adult) (pediatric); Z99.89 - Dependence on other enabling machines and devices Category: Medical Plan: Compliant with his CPAP mask. (5) Obesity (BMI 30-39.9): Code(s): E66.9 - Obesity, unspecified Category: Medical Plan: Benefits of weight loss reviewed. (6) COPD (chronic obstructive pulmonary disease): Code(s): J44.9 - Chronic obstructive pulmonary disease, unspecified Category: Medical Plan: As above Plan Time spent on chart review, documentation, interview, assessment Coding Level of Care Code Est Pt Level 4 (16432) Complex EM visit Add On G2211 Diagnoses Dyspnea on exertion R06.00 S/P cardiac catheterization Z98.890 Hyperlipidemia, unspecified hyperlipidemia type E78.5 Hyperlipidemia type: unspecified ANTHONY on CPAP G47.33; Z99.89 Obesity (BMI 30-39.9) E66.9 COPD (chronic obstructive pulmonary disease) J44.9 Time Spent (min) 30
== END 2024-08-15 15:02 | disposition home or self-care (01) ==
PROVIDERS: PCP Internal Medicine; Visit Provider Nurse Practitioner Family
DX: R06.00 Dyspnea, unspecified (principal); Z98.890 Other specified postprocedural states; E78.5 Hyperlipidemia, unspecified; G47.33 Obstructive sleep apnea (adult) (pediatric); Z99.89 Dependence on other enabling machines and devices; E66.9 Obesity, unspecified; J44.9 Chronic obstructive pulmonary disease, unspecified
CPT/HCPCS: 99214; G2211

== ENCOUNTER → 2024-08-15 12:49 | Outpatient (BNVA) | payer MEDICARE, SELFPAY | PROVIDERS: PCP Internal Medicine; Visit Provider Nurse Practitioner Family | DX: R06.00 Dyspnea, unspecified (principal); E78.5 Hyperlipidemia, unspecified; J44.9 Chronic obstructive pulmonary disease, unspecified; G47.33 Obstructive sleep apnea (adult) (pediatric); E66.9 Obesity, unspecified; F17.210 Nicotine dependence, cigarettes, uncomplicated; Z68.35 Body mass index [BMI] 35.0-35.9, adult; Z99.89 Dependence on other enabling machines and devices; Z98.890 Other specified postprocedural states | CPT/HCPCS: 99212 ==

== ENCOUNTER 2024-11-18 08:31 | Outpatient (REF) | payer MEDICARE, SELFPAY ==
--- OUTSIDE RECORDS SUMMARY | 2024-11-18 08:33 | XMS_ITS | Patient Health Record ---
Author Organization [facility] Address [address] [place] [address] Care Team Providers Care Wig Stylist Name Role Phone Talisha (RETIRED) Marc YOUNG Primary Care Provid er Unavailable Marc Pierre Unavailable [phone] Reason For Referral No Information Medications Medication SIG (Take, Route, Frequency, Duration) Notes Start Date End Date Status Atorvastatin Calcium 40 MG 1 tablet Oral ly Once a day Active Social History Tobacco Use: Social History Observation Description Date Details (start date - stop date) Former Smoker NA - NA Tobacco Use/Smoking Question Answer Notes Patient is a former smoker How long has it been since you last smoked? > 10 years Alcohol Screen Question Answer Notes Did you have a drink contain ing alcohol in the past year? Yes How often did you have a dri nk containing alcohol in the past year? 2 to 4 times a month (2 points) How many drinks did you have on a typical day when you were drinking in the past year? 1 or 2 drinks (0 point) How often did you have 6 or more drinks on one occasion in the past year? Never (0 point) Points 2 Interpretation Negative Section Notes: Nonsmoker; no sig alcohol Problems Problem Type SNOMED Code ICD Code Onset Dates Problem Status W/U Status Risk Notes Problem [id number] Encounter for screening for malignant neoplasm of colon (Z12.11) Active confirmed Problem [id number] Preprocedural examination (Z01.818) Active confirmed Plan Of Treatment Future Test Test Name Order Date COLONOSCOPY 01/06/2018 Insurance Providers Payer Name Payer Address Payer Phone Subscriber Number Group Number Insured Name Patient Relationship to Insured Coverage Start Date Coverage End Date [facility] [address] [place] [address] [phone] [id number] Self - patient is the insured Medical (General) History Medical History History ICD Code Denies DC,DM,CVA,Lung disease,renal dise ase Sleep apnea uses CPAP mask Screening colonoscopy in 10/2006--diverti culosis and internal hemorrhoids Di[place] in [place] [facility] [place]treated w ith antibiotics--no surgery Hyperlipidemia Surgical History Surgery Date(Month/Year) Left knee replacement 08/2016 Right knee replacement 08/2016 Eye surgery as a child
[2024-11-18 10:09] LABS: Appearance Urine Clear; Glucose Urine UA Negative (Negative); PH 5.5 (5.0-9.0); Specific Gravity - Urine >= 1.030 (1.005-1.025); UMIC TRIGGER UA YES
[2024-11-18 10:13] LABS: MANUAL DIFF FLAG NO
[2024-11-18 10:25] LABS: Hematocrit 43.9 % (42.0-52.0); Hemoglobin 15.0 g/dl (14.0-18.0); Imm Gran Abs Auto 0.02 X10*3/uL (0.00-0.03); Imm Gran Pct Auto 0.4 % (0.0-0.4); Lymphocytes Absolute Auto 1.6 X10*3/uL (1.2-4.9); Mean Corpuscular HGB Conc 34.2 g/dl (31.0-36.0); Mean Corpuscular Hemoglobin 31.0 pg (27.0-33.0); Mean Corpuscular Volume 90.7 fL (80.0-98.0); NRBC Abs Auto 0.000 X10*3/uL (0.0-0.012); NRBC Pct Auto 0.0 /100WBC (0.0-0.2); Platelet Count 190 X10*3/uL (160-400); Red Blood Count 4.84 X10*6/uL (4.60-5.80); White Blood Count 5.3 X10*3/uL (4.8-10.8)
[2024-11-18 10:55] LABS: Alanine Aminotransferase 31 U/L (0-40); Albumin Level 4.2 g/dL (3.5-5.0); Alkaline Phosphatase 101 U/L (39-117); Anion Gap 11 (12-20); Aspartate Amino Transferase 32 U/L (5-37); Blood Urea Nitrogen 20 mg/dL (9-16); Calcium 8.8 mg/dL (8.4-10.2); Carbon Dioxide 25 mmol/L (22-29); Chloride 105 mmol/L (96-108); Cholesterol 176 mg/dL (<200); Estimated Glomerular Filt Rate > 60; HDL Cholesterol 51 mg/dL (>40); Potassium 4.3 mmol/L (3.3-5.1); Sodium 137 mmol/L (135-145); Total Protein 7.0 g/dL (6.5-8.0); Triglycerides 156 mg/dL (<150)
[2024-11-18 11:02] LABS: PSA,Total (Free>4and<10) 0.88 ng/mL (0.00-4.00)
== END 2024-11-18 08:32 | disposition home or self-care (01) ==
LOC: HO.HMGCLDS 08:31
PROVIDERS: PCP Internal Medicine; Visit Provider Internal Medicine
DX: E78.5 Hyperlipidemia, unspecified (principal); E66.9 Obesity, unspecified; Z12.5 Encounter for screening for malignant neoplasm of prostate
CPT/HCPCS: 36415; 80053; 80061; 81001; 84153; 85025

== ENCOUNTER 2024-11-30 09:13 | Outpatient (AMB) | payer MEDICARE, SELFPAY ==
[2024-11-30 09:18] VITALS: BP 112/72; PULSE 67; O2SAT 97; BMI 35.7
--- NOTE | 2024-11-30 09:18 | MHC.PC.OV ---
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 COPD mild stable, uses Albuterol prn. Patient has been trying to decrease caloric intake increasing physical activity to lose weight PFSH Medical History (Updated 11/30/24 @ 09:58 by Jeannette Lucio MD) Dyspnea on exertion Osteoarthritis of knee, unilateral COPD (chronic obstructive pulmonary disease) ANTHONY on CPAP Obesity (BMI 30-39.9) Surgical History S/P cardiac catheterization H/O knee surgery Family History Brother A-fib Brother A-fib Social History Housing: House Alcohol intake: current Alcohol intake frequency: a few times a week Patient Tobacco Use Status: Former Tobacco user Tobacco use type: Cigar Years Smoked: 30+/- (Cigarettes) e-Cigarette/Vaping Use: Never Used service: No Current occupational status: retired 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 Current occupational exposures/hazards: Yes Cognitive needs: No Hearing needs: No Vision needs: No Questionnaire Thrive Questionnaire Date Thrive assessed: 08/11/24 I am a: Patient What is your living situation today?: I have a steady place to live Within the past 12 months, did the food you bought not last and you didn't have the money to get more?: Often true Within the past 12 months, did you worry whether your food would run out before you got money to buy more?: Never true Do you have trouble paying for medicines?: No Do you have trouble getting transportation to medical appointments?: No Do you have trouble paying your heating and electricity bill?: No Do you have trouble taking care of your child, family member or friend?: No Do you have trouble with day-to-day activities such as bathing, preparing meals, shopping, managing finances, etc.?: No Are you currently unemployed and looking for a job?: No Are you interested in more education?: No Please select the resources that you would like help with: None Currently or been in a relationship where the following occur: No concerns reported THRIVE Score: 1 ALLIE-7 AMB Questionnaire ALLIE-7 Date ALLIE - 7 assessed: 08/11/24 Source: Developed by Drs. Marc Nathan, Tyra Ruth, Bhanu Gayle and colleagues, with an educational alex from [employer]. Review of Systems Const All systems reviewed & are unremarkable except as noted in HPI and below Reports no additional complaints Eyes Reports no additional complaints ENT Reports no additional complaints Card Reports no additional complaints Resp Reports no additional complaints GI Reports no additional complaints Reports no additional complaints Physical exam (Primary Care) Vital Signs: Last Vital Signs Pulse 67 11/30/24 09:18 BP 112/72 11/30/24 09:18 Pulse Ox 97 11/30/24 09:18 Oxygen Delivery Method Room Air 11/30/24 09:18 BMI result Body Mass Index 35.7 Tobacco/Smoking Status: Tobacco use Status Tobacco use date assessed 08/11/24 11/30/24 09:18 Patient Tobacco Use Status Former Tobacco user 11/30/24 09:18 Tobacco use type Cigar 11/30/24 09:18 e-Cigarette/Vaping Use Never Used 11/30/24 09:18 Thrive Assessment: Date of Thrive Assessment Date Thrive assessed 08/11/24 11/30/24 09:18 Currently or been in a relationship where the following occur: No concerns reported Const General: no acute distress HENMT Head: Yes normal to inspection Mouth: Normal oral and palatal mucosa present Resp Effort & Inspection: normal respiratory effort Auscultation: clear to auscultation bilaterally Cardio Rhythm: regular rhythm Heart sounds: S1 normal heart sound present and S2 normal heart sound present Coding Level of Care Code Est Pt Level 3 (79283) Diagnoses Obesity (BMI 30-39.9) E66.9 Hyperlipidemia, unspecified hyperlipidemia type E78.5 Hyperlipidemia type: unspecified Assessment & Plan Assessment & Plan (1) Obesity (BMI 30-39.9): Code(s): E66.9 - Obesity, unspecified Category: Medical Plan: Decreasing caloric intake increasing physical activity and weight loss discussed with the patient (2) Hyperlipidemia: Code(s): E78.5 - Hyperlipidemia, unspecified Category: Medical Qualifiers: Hyperlipidemia type: unspecified Qualified Code(s): E78.5 - Hyperlipidemia, unspecified Plan: Continue statin, return for physical in August with a fasting labs before Orders: Orders Complete Blood Count Auto Diff 9 Months E66.9 - Obesity, unspecified, E78.5 - Hyperlipidemia, unspecified, Z00.00 - Encounter for general adult medical examination without abnormal findings Comprehensive Elim. Panel Fast 9 Months E66.9 - Obesity, unspecified, E78.5 - Hyperlipidemia, unspecified, Z00.00 - Encounter for general adult medical examination without abnormal findings Lipid Panel 9 Months E66.9 - Obesity, unspecified, E78.5 - Hyperlipidemia, unspecified, Z00.00 - Encounter for general adult medical examination without abnormal findings PSA,Total (Free>4and<10) 9 Months E66.9 - Obesity, unspecified, E78.5 - Hyperlipidemia, unspecified, Z00.00 - Encounter for general adult medical examination without abnormal findings UA w Microscopic 9 Months E66.9 - Obesity, unspecified, E78.5 - Hyperlipidemia, unspecified, Z00.00 - Encounter for general adult medical examination without abnormal findings Medications: Refilled atorvastatin 40 mg PO DAILY 90 tabs 3RF
--- OUTSIDE RECORDS SUMMARY | 2024-11-30 09:42 | XMS_ITS | Patient Health Record ---
Author Organization [facility] Address [address] [place] [address] Care Team Providers Care Heel Wheeler Name Role Phone Talisah (RETIRED) Marc YOUNG Primary Care Provid er Unavailable Marc Pierre Unavailable [phone] Reason For Referral No Information Medications Medication [...] Problem Status W/U Status Risk Notes Problem [id number] Encounter for screening for malignant neoplasm of colon (Z12.11) Active confirmed Problem [id number] Preprocedural examination (Z01.818) Active confirmed Plan Of Treatment Future Test Test Name Order Date COLONOSCOPY 01/06/2018 Insurance Providers Payer Name Payer Address Payer Phone Subscriber Number Group Number Insured Name Patient Relationship to Insured Coverage Start Date Coverage End Date [facility] [address] [place] [address] [id number] [address] Self - patient is the insured Medical (General) History Medical History History ICD Code Denies OR,DM,CVA,Lung disease,renal dise ase Sleep apnea uses CPAP mask Screening colonoscopy in 10/2006--diverti culosis and internal hemorrhoids [place] [facility] [place] w ith antibiotics--no surgery Hyperlipidemia Surgical History Surgery Date(Month/Year) Left knee replacement 08/2016 Right knee replacement 08/2016 Eye surgery as a child
== END 2024-11-30 11:08 | disposition home or self-care (01) ==
LOC: HO.HMCC 09:14
PROVIDERS: PCP Internal Medicine; Visit Provider Internal Medicine
DX: E78.5 Hyperlipidemia, unspecified (principal); E66.9 Obesity, unspecified; Z68.35 Body mass index [BMI] 35.0-35.9, adult

== ENCOUNTER → 2024-11-30 09:13 | Outpatient (BNVA) | payer MEDICARE, SELFPAY | PROVIDERS: PCP Internal Medicine; Visit Provider Internal Medicine | DX: E78.5 Hyperlipidemia, unspecified (principal); E66.9 Obesity, unspecified; Z68.35 Body mass index [BMI] 35.0-35.9, adult; Z71.3 Dietary counseling and surveillance; Z87.891 Personal history of nicotine dependence | CPT/HCPCS: 99212 ==

== ENCOUNTER 2025-02-14 09:11 | Outpatient (AMB) | payer MEDICARE, SELFPAY ==
--- NOTE | 2025-02-14 09:30 | MHC.OFFVIS ---
Vital Signs 02/14/25 09:31 Height 5 ft 9 in Weight 244 lb 11.41 oz BMI 36.1 BP 130/62 Blood Pressure Location Lt brachial Position Sitting Pulse 90 Pulse Source Pulse Oximeter Pulse Oximetry (%) 94 Oxygen Delivery Method Room Air Intake Visit Reasons: nery Intake Note: pt is here for follow up and states his breathing his an issue lately with exertion and even with sitting feels like he cannot get his breath, this is new for the past month. cpap not sure if pressure is correct. Applications Coordinator Required: No Stave Cutting Supervisor: Stave Cutting Supervisor offered & declined Allergies No Known Allergies (No Known Allergies*) Allergy (Verified 02/14/25 09:54) Medication List - Last Reconciled 02/14/25 by Kris Corbett MD albuterol sulfate 90 mcg/actuation 2 puffs inhalation Q4-6H PRN atorvastatin 40 mg PO DAILY Do you need a note to return to daycare/school/sports/work: No HPI HPI nery: Details: This 69 years old gentleman comes for his routine follow-up after 6 months. He complains that he uses his CPAP regularly every night but wakes up during the night feeling that he has too much pressure, he takes a few deep breaths and then he puts the mask on again. He also feels more short of breath on usual level of exertion has a feeling of tightness in the chest at night. He has history of smoking cigars for his whole adult life and quit about 2 years ago. He is showing his concern about lung cancer. He has put on some weight, and finds it hard to lose. [facility] Medical History (Updated 02/14/25 @ 10:03 by Kris Corbett MD) History of smoking at least 1 pack per day for at least 30 years Dyspnea on exertion Osteoarthritis of knee, unilateral COPD (chronic obstructive pulmonary disease) NERY on CPAP Obesity (BMI 30-39.9) Surgical History S/P cardiac catheterization H/O knee surgery Family History Brother A-fib Brother A-fib Social History Housing: House Alcohol intake: current Alcohol intake frequency: a few times a week Patient Tobacco Use Status: Former Tobacco user Tobacco use type: Cigar Years Smoked: 30+/- (Cigarettes) e-Cigarette/Vaping Use: Never Used service: No Current occupational status: retired 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 Current occupational exposures/hazards: Yes Cognitive needs: No Hearing needs: No Vision needs: No Review of Systems Const All systems reviewed & are unremarkable except as noted in HPI and below Eyes Reports no additional complaints ENT Reports no additional complaints Card Denies chest pain, Denies irregular heart rhythm, Denies leg edema and Reports dyspnea on exertion (mild, on walking around , especially if going up hill.) Resp Denies cough, Reports dyspnea on exertion (mild, on walking around , especially if going up hill.) and Denies wheezing GI Reports no additional complaints Reports no additional complaints Musc Reports no additional complaints Skin/Breast Reports system reviewed and no additional complaints, except as documented Neuro Reports no additional complaints Psych Reports no additional complaints Aller/Immun Denies wheezing Physical Exam Vital Signs: Last Vital Signs Pulse 90 02/14/25 09:31 BP 130/62 02/14/25 09:31 Pulse Ox 94 02/14/25 09:31 Oxygen Delivery Method Room Air 02/14/25 09:31 BMI result Body Mass Index 36.1 Const General: healthy appearing (Except for being overweight), comfortable, no acute distress, alert and awake Orientation/consciousness: patient oriented x3 HEENT Head: Yes normal to inspection General nose exam: No nasal polyps present and No nasal discharge present Face and sinus: Yes sinuses nontender Mouth: oropharynx normal Throat: Yes posterior oropharynx normal (Space compromised, Mallampati class 3) Eyes General: appearance normal, both eyes and all related structures Neck Neck: Yes normal visual inspection, Yes no lymphadenopathy, Yes trachea midline and Yes no JVD Thyroid: Thyroid normal Chest Chest palpation & inspection: normal inspection of the chest, normal palpation of entire chest wall and no tenderness Resp Effort & Inspection: normal respiratory effort Auscultation: clear to auscultation bilaterally, no crackles and no wheezes Cardio Palpation: normal PMI Rate: regular rate Rhythm: regular rhythm Heart sounds: no gallops and no murmurs Peripheral pulses: Peripheral pulses 2+ throughout GI Palpation (GI): Soft to palpation, nontender, No hepatosplenomegaly present, no masses and Other GI palpation findings present (Abdomen is obese and protuberant) Auscultation: normal bowel sounds Back/Spine/Pelvis Thoracic/Lumbar Spine: thoracic and lumbar spine normal to inspection Skin General skin exam: no rashes or lesions noted Neuro General: patient oriented x3 and no focal motor deficits Cranial nerves: Yes CN's II-XII intact bilaterally Extrem General: Yes normal to inspection, Yes no clubbing, cyanosis or edema and Yes no calf tenderness Psych Appearance: grossly normal and well kempt Speech and movement: Normal speech and movement present Results Reviewed Results Reviewed: He had spirometry test on his last visit on 07/21/2024, which showed mild to moderate degree of obstructive airway disorder. Compliance report today shows that he uses 100% of the nights with an average use it per night 6 hours to minutes. His pressure setting is CPAP of 17 cm. There is only mild air leak. Residual AHI 3.4 Assessment & Plan Assessment & Plan (1) Obesity (BMI 30-39.9): Comment: His current BMI is 36.1 has gained a few lb since last visit. Code(s): E66.9 - Obesity, unspecified Category: Medical Plan: Discussed about the weight and especially recent weight gain. Advised him to cut down the calories intake and start walking more every day (2) NERY on CPAP: Comment: He is a known case of obstructive He is fully compliant and uses every night. Has been on CPAP setting of 17 cm. Complains of feeling of too much pressure which makes him up at night . Code(s): G47.33 - Obstructive sleep apnea (adult) (pediatric); Z99.89 - Dependence on other enabling machines and devices Category: Medical Plan: Will change the setting to auto Pap mode 6-20 cm, and see if it is easier for him to use. (3) COPD (chronic obstructive pulmonary disease): Comment: He has past history of smoking cigars up until 2 years ago. He has had mild obstructive airway disorder, using albuterol PRN He say is that now he uses albuterol inhaler at least once during the night. And also gets more short of breath on his usual exertion. Code(s): J44.9 - Chronic obstructive pulmonary disease, unspecified Category: Medical Plan: I reviewed the results of spirometry in July 2024. Will try a long-acting bronchodilator with ICS, and see if it can control his symptoms better. WIXELA 250-50 1 INHALATION B.I.D. IS ORDERED . (4) History of smoking at least 1 pack per day for at least 30 years: Comment: Patient has past history of smoking cigars, As he feels some tightness in his chest off and on, he say is that he is very concerned about any possible lung disease, on top of COPD. Definitely lung. Cancer is on his mind He is not in annual screening program. Code(s): Z87.891 - Personal history of nicotine dependence Category: Social Hx Plan: I think I will order a CT scan of the chest, and then take it from the. Orders: Referrals Lung Cancer Screening Referral J44.9 - Chronic obstructive pulmonary disease, unspecified, Z87.891 - Personal history of nicotine dependence Medications: New fluticasone propion-salmeterol 250-50 mcg/dose (Wixela Inhub) 1 inh inhalation BID 60 ea 3RF copd 30 days Coding Level of Care Code Est Pt Level 3 (53321) Diagnoses Obesity (BMI 30-39.9) E66.9 NERY on CPAP G47.33; Z99.89 COPD (chronic obstructive pulmonary disease) J44.9 History of smoking at least 1 pack per day for at least 30 years Z87.891
[2025-02-14 09:31] VITALS: BP 130/62; PULSE 90; O2SAT 94; BMI 36.1
--- OUTSIDE RECORDS SUMMARY | 2025-02-14 09:56 | XMS_ITS | Patient Health Record ---
Author Organization [facility] Address [address] [place] [address] Care Team Providers Care Ski Molder Name Role Phone Talisha (RETIRED) Marc YOUNG Primary Care Provid er Unavailable Marc Pierre Unavailable [phone] Reason For Referral No Information Medications Medication [...] Problem Status W/U Status Risk Notes Problem Screening for malignant neoplasm of colon (852591436) Encounter for screening for malignant neoplasm of colon (Z12.11) Active confirmed Problem Preprocedural examination (340254338025391) Preprocedural examination (Z01.818) Active confirmed Plan Of Treatment Future Test Test Name Order Date COLONOSCOPY 01/06/2018 Insurance Providers Payer Name Payer Address Payer Phone Subscriber Number Group Number Insured Name Patient Relationship to Insured Coverage Start Date Coverage End Date [facility] [employer] PROF[employer]AL CLAIMS [address] [place] [address] [id number] Self - patient is the insured Medical (General) History Medical History History ICD Code Denies [place],DM,CVA,Lung disease,renal dise ase Sleep apnea uses CPAP mask Screening colonoscopy in 10/2006--diverti culosis and internal hemorrhoids Diverticulitis in 2013 at [facility] [place]--treated w ith antibiotics--no surgery Hyperlipidemia Surgical History Surgery Date(Month/Year) Left knee replacement 08/2016 Right knee replacement 08/2016 Eye surgery as a child
== END 2025-02-14 09:53 | disposition home or self-care (01) ==
LOC: HO.HPS 09:12
PROVIDERS: PCP Internal Medicine; Visit Provider Internal Medicine
DX: E66.9 Obesity, unspecified (principal); G47.33 Obstructive sleep apnea (adult) (pediatric); Z99.89 Dependence on other enabling machines and devices; J44.9 Chronic obstructive pulmonary disease, unspecified; Z87.891 Personal history of nicotine dependence
CPT/HCPCS: 99213

== ENCOUNTER → 2025-02-14 09:11 | Outpatient (BNVA) | payer MEDICARE, SELFPAY | PROVIDERS: PCP Internal Medicine; Visit Provider Internal Medicine | DX: J44.9 Chronic obstructive pulmonary disease, unspecified (principal); E66.9 Obesity, unspecified; G47.33 Obstructive sleep apnea (adult) (pediatric); Z68.36 Body mass index [BMI] 36.0-36.9, adult; Z87.891 Personal history of nicotine dependence; Z99.89 Dependence on other enabling machines and devices | CPT/HCPCS: 99212 ==

== ENCOUNTER 2025-03-23 09:48 | Outpatient (AMB) | payer MEDICARE, SELFPAY ==
[2025-03-23 10:02] VITALS: BP 120/78; PULSE 69; O2SAT 95; BMI 35.8
--- NOTE | 2025-03-23 10:02 | A.OFFVIS_ITS ---
Vital Signs 03/23/25 10:02 Height 5 ft 9 in Weight 242 lb 8.136 oz BMI 35.8 BP 120/78 Blood Pressure Location Lt brachial Position Sitting Pulse 69 Pulse Source Pulse Oximeter Pulse Oximetry (%) 95 Oxygen Delivery Method Room Air Intake Visit Reasons: Obstructive sleep apnea Intake Note: pt is here for follow up and states he is falling asleep easier, inhaler is helping, still some issues Marine Electronics Technician Required: No Machine Inspector: Machine Inspector offered & declined Allergies No Known Allergies (No Known Allergies*) Allergy (Verified 03/23/25 10:21) Medication List - Last Reconciled 03/23/25 by Kris Corbett MD albuterol sulfate 90 mcg/actuation 2 puffs inhalation Q4-6H PRN atorvastatin 40 mg PO DAILY fluticasone propion-salmeterol 250-50 mcg/dose (Wixela Inhub) 1 inh inhalation BID 30 days Do you need a note to return to daycare/school/sports/work: No HPI HPI Obstructive sleep apnea: Details: 69 YEARS OLD 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 FROM LAST TIME HIS PRESSURE SETTING WAS CHANGED TO BILEVEL, 20/6 CM HE CLAIMS THAT HE SLEEPS BETTER WITH THIS PRESSURE AND HAS NO HIGH PRESSURE LIKE FEELING FROM THE CPAP. HIS MASK DOES SLIP TO THE SIDE AND HE DOES HAVE SOME AIR LEAK BUT IT DOES NOT INTERFERE WITH THE SLEEP. BREATHING IS BETTER SINCE HE IS USING WIXELA TWICE A DAY REGULARLY ESPECIALLY BEFORE HE GOES TO SLEEP. HE QUIT SMOKING 3 YEARS AGO. [facility] Medical History (Updated 03/23/25 @ 10:29 by Kris Corbett MD) Personal history of nicotine dependence Dyspnea on exertion Osteoarthritis of knee, unilateral COPD (chronic obstructive pulmonary disease) ANTHONY on CPAP Obesity (BMI 30-39.9) Surgical History (Updated 02/20/25 @ 15:59 by Raysa Barnes PA-C) Hx of colonoscopy S/P cardiac catheterization H/O knee surgery Family History Brother A-fib Brother A-fib Social History Housing: House Alcohol intake: current Alcohol intake frequency: a few times a week Patient Tobacco Use Status: Former Tobacco user Tobacco use type: Cigar Years Smoked: 30+/- (Cigarettes) e-Cigarette/Vaping Use: Never Used service: No Current occupational status: retired 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 Current occupational exposures/hazards: Yes Cognitive needs: No Hearing needs: No Vision needs: No Review of Systems Const All systems reviewed & are unremarkable except as noted in HPI and below Eyes Reports no additional complaints ENT Reports no additional complaints Card Denies chest pain, Denies irregular heart rhythm, Denies leg edema and Reports dyspnea on exertion (mild, on walking around , especially if going up hill.) Resp Denies cough, Reports dyspnea on exertion (mild, on walking around , especially if going up hill.) and Denies wheezing GI Reports no additional complaints Reports no additional complaints Musc Reports no additional complaints Skin/Breast Reports system reviewed and no additional complaints, except as documented Neuro Reports no additional complaints Psych Reports no additional complaints Aller/Immun Denies wheezing Physical Exam Vital Signs: Last Vital Signs Pulse 69 03/23/25 10:02 BP 120/78 03/23/25 10:02 Pulse Ox 95 03/23/25 10:02 Oxygen Delivery Method Room Air 03/23/25 10:02 BMI result Body Mass Index 35.8 Const General: healthy appearing (Except for being overweight), comfortable, no acute distress, alert and awake Orientation/consciousness: patient oriented x3 HEENT Head: Yes normal to inspection General nose exam: No nasal polyps present and No nasal discharge present Face and sinus: Yes sinuses nontender Mouth: oropharynx normal Throat: Yes posterior oropharynx normal (Space compromised, Mallampati class 3) Eyes General: appearance normal, both eyes and all related structures Neck Neck: Yes normal visual inspection, Yes no lymphadenopathy, Yes trachea midline and Yes no JVD Thyroid: Thyroid normal Chest Chest palpation & inspection: normal inspection of the chest, normal palpation of entire chest wall and no tenderness Resp Effort & Inspection: normal respiratory effort Auscultation: clear to auscultation bilaterally, no crackles and no wheezes Cardio Palpation: normal PMI Rate: regular rate Rhythm: regular rhythm Heart sounds: no gallops and no murmurs Peripheral pulses: Peripheral pulses 2+ throughout GI Palpation (GI): Soft to palpation, nontender, No hepatosplenomegaly present, no masses and Other GI palpation findings present (Abdomen is obese and protuberant) Auscultation: normal bowel sounds Back/Spine/Pelvis Thoracic/Lumbar Spine: thoracic and lumbar spine normal to inspection Skin General skin exam: no rashes or lesions noted Neuro General: patient oriented x3 and no focal motor deficits Cranial nerves: Yes CN's II-XII intact bilaterally Extrem General: Yes normal to inspection, Yes no clubbing, cyanosis or edema and Yes no calf tenderness Psych Appearance: grossly normal and well kempt Speech and movement: Normal speech and movement present Results Reviewed Results Reviewed: COMPLIANCE REPORT FOR THE LAST 30 NIGHTS SHOWS THAT HE HAS USED 30/30 NIGHTS WITH AN AVERAGE USAGE PER NIGHT OF 6 HOURS 11 MINUTES. PRESSURE USED MAINLY 14 TO 17 CM. THERE IS SOME AIR LEAK, MAXIMUM 50.7 L PER MINUTE. RESIDUAL AHI IS 8, WHICH IS HIGHER THAN BEFORE. Assessment & Plan Assessment & Plan (1) ANTHONY on CPAP: Comment: He is a known case of obstructive He is fully compliant and uses every night. Has been on CPAP setting of 17 cm. Complains of feeling of too much pressure which makes him up at night . PRESSURE SETTING WAS CHANGED TO BILEVEL , 20/6 CM HE CLAIMS THAT HE SLEEPS MUCH EASIER ON THIS SETTING. Code(s): G47.33 - Obstructive sleep apnea (adult) (pediatric); Z99.89 - Dependence on other enabling machines and devices Category: Medical Plan: THERE IS SLIGHT INCREASE IN RESIDUAL AHI , THIS MAY BE RELATED TO AIR LEAK. I ADVISED HIM TO TIGHTEN THE STRAPS AT NIGHT . KEEP ON USING THE BILEVEL CPAP , IT MAKES IT EASIER FOR HIM TO SLEEP. (2) COPD (chronic obstructive pulmonary disease): Comment: He has past history of smoking cigars up until 2 years ago. He has had mild obstructive airway disorder, using albuterol PRN He says that with the use of Advair 250-51 inhalation b.i.d. his breathing is better he does not have to wake up with cough at night, and he is less short of breath on doing physical work . Code(s): J44.9 - Chronic obstructive pulmonary disease, unspecified Category: Medical Plan: Continue using Wixela 250-51 inhalation b.i.d., and use albuterol HFA only PRN . (3) Obesity (BMI 30-39.9): Comment: His current BMI is 35.8 , has lost a few lbs since last visit. Code(s): E66.9 - Obesity, unspecified Category: Medical Plan: Commended for losing weight and encouraged to keep on losing more weight, slowly Coding Level of Care Code Est Pt Level 3 (78122) Diagnoses ANTHONY on CPAP G47.33; Z99.89 COPD (chronic obstructive pulmonary disease) J44.9 Obesity (BMI 30-39.9) E66.9
== END 2025-03-23 11:51 | disposition home or self-care (01) ==
LOC: HO.HPS 09:48
PROVIDERS: PCP Internal Medicine; Visit Provider Internal Medicine
DX: G47.33 Obstructive sleep apnea (adult) (pediatric) (principal); Z99.89 Dependence on other enabling machines and devices; J44.9 Chronic obstructive pulmonary disease, unspecified; E66.9 Obesity, unspecified
CPT/HCPCS: 99213

== ENCOUNTER → 2025-03-23 09:48 | Outpatient (BNVA) | payer MEDICARE, SELFPAY | PROVIDERS: PCP Internal Medicine; Visit Provider Internal Medicine | DX: J44.9 Chronic obstructive pulmonary disease, unspecified (principal); G47.33 Obstructive sleep apnea (adult) (pediatric); Z99.89 Dependence on other enabling machines and devices; E66.9 Obesity, unspecified; Z68.35 Body mass index [BMI] 35.0-35.9, adult; Z87.891 Personal history of nicotine dependence | CPT/HCPCS: 99212 ==